=== PATIENT | male | born 1960 | race Caucasian/White ===

== ENCOUNTER → 2017-11-10 14:16 | Outpatient (CLI) | payer BC, SELFPAY ==
[2017-11-10 15:59] LABS: Absolute Lymphocyte Count 2.19 X10^3/ul (0.83-4.51); Absolute Neutrophil Count 3.9 X10^3/uL (2.0-7.7); Basophil% 1.4 % (0-1); Eosinophil# 0.36 X10^3/uL; Hematocrit 41.6 % (40-54); Hemoglobin 14.4 g/dl (13.0-16.5); Lymphocyte # 2.19 X10^3/ul (4.0); Lymphocyte % 30.7 % (19-41); Mean Corp Hgb Conc 34.6 g/gl (32-36); Mean Corpuscular Hgb 31.6 pg (27.0-32.0); Mean Corpuscular Volume 91.4 fL (80-94); Mean Platelet Vol. 11.3 fl (6.2-12.0); Monocyte# 0.53 X10^3/uL; Monocyte% 7.4 % (0-10); Neutrophil # 3.94 X10^3/uL (2.7-7.7); Neutrophil % 55.4 % (47-70); Platelet Count 260 K/mm3 (150-450); RBC Distribution Width CV 12.2 % (11.6-14.6); RBC Distribution Width SD 40.7 fl (35.1-43.9); Red Blood Count 4.55 M/mm3 (4.6-6.2); White Blood Count 7.1 K/mm3 (4.4-11.0)
[2017-11-10 16:08] LABS: POSITIVE COUNT NO; POSITIVE DIFFERENTIAL NO; POSITIVE MORPHOLOGY NO
[2017-11-10 16:10] LABS: ALB/GLOB Ratio 1.1 RATIO (0.9-2.4); AST(SGOT) 12 U/L (15-37); Alanine Aminotransfer ALT/SGPT 31 U/L (16-61); Alkaline Phosphatase 84 U/L (45-117); Anion Gap 10 (5-15); BUN 13 mg/dL (7-18); BUN/Creat Ratio 13.9 RATIO (10-20); Calcium,Total 8.8 mg/dL (8.5-10.1); Chloride 99 mmol/L (98-107); Creatinine, Serum 0.93 mg/dL (0.70-1.30); EST Glomerular Filtration Rate 89 mL/min (>60); Est Glom Filt Rate - Afr Amer 108 mL/min (>60); Globulin 3.7 g/dL (2.2-4.2); Glucose 282 mg/dL (74-106); PSA,Total - Annual Screen 0.62 ng/mL (0.00-4.00); Potassium 4.3 mmol/L (3.5-5.1); Protein, Total 7.7 g/dL (6.4-8.2); Sodium Level 135 mmol/L (136-145); Thyroid Stim Hormone (TSH) 1.08 uIU/mL (0.358-3.74)
[2017-11-11 11:28] LABS: Vitamin D,25 Hydroxy 6.5 ng/mL (19.95-100.01)
[2017-11-12 17:01] LABS: Hep C Antibodies 0.2 s/co ratio (0.0-0.9)
== END ==
PROVIDERS: Visit Provider Family Medicine Geriatric Medicine
DX: E11.9 Type 2 diabetes mellitus without complications (principal); E55.9 Vitamin D deficiency, unspecified; I10 Essential (primary) hypertension; Z12.5 Encounter for screening for malignant neoplasm of prostate; Z13.89 Encounter for screening for other disorder
CPT/HCPCS: 36415; 80053; 82306; 84153; 84443; 85025; 86803; G0103

== ENCOUNTER → 2017-11-27 15:09 | Outpatient (CLI) | payer BC, SELFPAY ==
--- NOTE | 2017-11-27 15:20 | CT_ITS ---
STUDY: LOW DOSE CT LUNG CANCER SCREENING REASON FOR EXAM: Male, 57 years old. 18 year history of smoking RADIATION DOSAGE (If Supplied By Facility): CTDIvol = ( 4.02 ) mGy, DLP = ( 140.44 ) mGycm TECHNIQUE: No contrast was administered. Low dose technique was utilized (average mAS-38 and kVp 120). 1.25 mm axial source images with a slice interval of 1.25-mm were reconstructed in lung windows. 2.5 mm axial source images with a slice interval of 2.5-mm were reconstructed in lung windows. 5.0 mm axial source images with a slice interval of 5.0-mm were reconstructed in soft tissue windows. Nodule measured using lung windows on PACS and/or independent workstation with automated measurement of minimum and maximum diameter. Nodule measurement reported as average diameter rounded to the nearest whole number. Growth is defined as an increase ins size of greater than 1.5 mm. COMPARISON: None. NODULES: Pleural-parenchymal scarring at the posterior segment of the right lung upper lobe. There is no demonstrated pleural abnormality. Normal heart and pericardium. Normal mediastinum. Normal hilar regions. Normal unenhanced pulmonary arteries. Normal aorta arch and descending thoracic aorta. There are multi-level degenerative changes of the thoracic spine. There is no demonstrated abnormality of the visualized upper abdomen. CT/Low Dose CT Lung Screening IMPRESSION: Lung-RADS category 2. Recommendation: Routine screening CT scan in one year. IMPORTANT NOTES FOR USE: ACR Lung-RADS Version 1.0 Assessment Categories Release Date: January 16, 2014 Category: Coded 0-4 bases on nodule(s) with highest degree of suspicion. Negative screen is defined as categories 1 and 2; a positive screen is defined as categories 3 and 4. Category 3 and 4A nodules that are unchanged on interval CT should be coded as category 2, and individuals returned to screening in 12 months. Category 4X: Category 3 or 4 nodules with additional imaging findings that increase the suspicion of lung cancer, such as spiculation, GGN that doubles in size in 1 year, enlarged lymph notes, etc. Category Modifiers: S (significant finding unrelated to lung cancer) and C (prior history of treated lung cancer) may be added to the 0-4 Lung-RADS Electronically Signed: Varsha Stein MD at 22:11 EST Tel , Service support ,
== END ==
PROVIDERS: Family Provider Family Medicine Geriatric Medicine; PCP Family Medicine Geriatric Medicine; Visit Provider Family Medicine Geriatric Medicine
DX: Z12.2 Encounter for screening for malignant neoplasm of respiratory organs (principal); Z87.891 Personal history of nicotine dependence
CPT/HCPCS: G0297

== ENCOUNTER → 2017-12-18 15:38 | Outpatient (CLI) | payer BC, SELFPAY ==
--- NOTE | 2017-12-18 08:15 | COLBX_PTH ---
PATIENT: ARIELLE HAMMER LOC: [facility] U#:[id number] AGE/SX: 65/M ROOM: RE12/18/[address]: Dr. Ghanshyam Alcantar MD : 1960 BED: DIS: SPEC #: [id number] RECD: 12/18/17 15:33 STATUS: ARTURO HARELeslie #: [id number] GUMARO: 12/18/17 08:[address]: Ghanshyam Alcantar DEPT: SURGICAL PATHOLOGY RECD BY: Vincent Sosa ENTERED: 12/21/17 07:29 SP TYPE: COLON BX OTHR DR: Dr. Cristian Banks MD [facility] Tissues: A - COLON BIOPSY B - Transverse colon C - Ascending colon Procedures: Surgery Specimen Level IV HEADER OPERATION: Colonoscopy PRE-OP DIAGNOSIS: Screening / polyp TISSUE SUBMITTED: A ? Polyp at 30 cm, rule out adenoma, B ? Transverse colon, rule out adenoma, C ? Mid ascending colon, rule out adenoma MICROSCOPIC DIAGNOSIS A. Polyp at 30 cm, biopsy: Tubular adenoma. B. Transverse colon polyp, biopsy: Fragments of tubular adenoma. C. Mid ascending colon polyp, biopsy: Tubular adenoma. Fragment of fecal material. STUART:clara 12/22/17 MICROSCOPIC DESCRIPTION Slides are reviewed. GROSS DESCRIPTION A - Received in fixative is one container labeled with the patient's name and designated polyp at 30 cm. The specimen consists of a shay-pink polyp measuring 0.8 x 0.8 x 0.5 cm. The apparent base is inked. The polyp is bisected and submitted entirely in one cassette. B - Received in fixative is one container labeled with the patient's name and designated transverse colon. The specimen consists of multiple irregular fragments of light shay soft tissue that in aggregate measure 1.2 x 0.5 x 0.3 cm. The specimen is totally submitted in one cassette. C - Received in fixative is one container labeled with the patient's name and designated mid ascending colon. The specimen consists of a shay-pink polyp measuring 1 x 0.5 x 0.2 cm. Also received in the container is an elongated fragment of brownish material measuring 1.5 cm in length and 0.1 cm in diameter. The specimen is totally submitted in one cassette. / STUART:clara 12/21/17 TC:1 CPT: 86848 x3
== END ==
PROVIDERS: Family Provider Family Medicine Geriatric Medicine; PCP Family Medicine Geriatric Medicine; Visit Provider Internal Medicine Gastroenterology
DX: Z12.11 Encounter for screening for malignant neoplasm of colon (principal); K63.5 Polyp of colon
CPT/HCPCS: 88305

== ENCOUNTER → 2018-03-22 15:30 | Outpatient (CLI) | payer BC, SELFPAY ==
--- NOTE | 2018-03-22 15:34 | RAD_ITS ---
STUDY: X-RAY - LUMBOSACRAL SPINE REASON FOR EXAM: Male, 57 years old. Lower back pain after shoveling dirt on . TECHNIQUE: 7 view(s) of the lumbosacral spine were obtained. COMPARISON: May 20, 2016. FINDINGS: Normal lumbar lordosis. There is no substantial scoliosis. There is normal alignment of the vertebrae. No significant motion in flexion or extension. Normal vertebral bodies and endplates. Mild multilevel disc space narrowing unchanged. Small marginal osteophytes at several levels. Normal bilateral sacral ala, sacroiliac joints, and visualized sacrum. Normal visualized soft tissue structures. Total left hip arthroplasty in normal alignment. 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 Electronically Signed: Krzysztof Tirado MD at 4:27 EDT , Service support ,
== END ==
LOC: RAD 15:32
PROVIDERS: Family Provider Family Medicine Geriatric Medicine; PCP Family Medicine Geriatric Medicine; Visit Provider Family Medicine Geriatric Medicine
DX: M51.36 Other intervertebral disc degeneration, lumbar region (principal); Z96.642 Presence of left artificial hip joint
CPT/HCPCS: 72114

== ENCOUNTER → 2018-05-13 17:46 | Outpatient (CLI) | payer BC, SELFPAY ==
[2018-05-13 19:08] LABS: Amphetamine Urine VISTA NEGATIVE (<1000 ng/mL); Barbiturate Urine VISTA NEGATIVE (< 200 ng/mL); Benzodiazepine Urine VISTA NEGATIVE (< 200 ng/mL); Cocaine Urine VISTA NEGATIVE (< 300 ng/mL); Ecstacy Urine VISTA NEGATIVE (< 500 ng/mL); Methadone Urine VISTA NEGATIVE (< 300 ng/mL); PCP Urine VISTA NEGATIVE (< 25 ng/mL); THC Urine VISTA NEGATIVE (< 50 ng/mL); Vista UDS pH Range 6
== END ==
LOC: LAB 17:47
PROVIDERS: Family Provider Family Medicine Geriatric Medicine; PCP Family Medicine Geriatric Medicine; Visit Provider Anesthesiology Pain Medicine
DX: F11.20 Opioid dependence, uncomplicated (principal)
CPT/HCPCS: 80307

== ENCOUNTER 2018-05-20 07:33 | Emergency (ER) | payer BC, SELFPAY ==
[2018-05-20 07:34] VITALS: BP 110/86; PULSE 116; RESP 24; TEMP 38.2; O2SAT 99; BMI 27.8
--- NOTE | 2018-05-20 07:53 | ED.DCSUM_ITS ---
- ER Visit Summary Date of Service: 05/20/18 Chief Complaint: Fever, chills nausea and vomiting History of Present Illness: The patient is a 57 M past medical history of non- insulin-dependent diabetes, hypertension, feet neuropathies and chronic back pain. Patient states the last 3 days he has had fever and chills. He has had nausea and vomiting x1. He feels clinically dehydrated. He denies any abdominal pain. He denies any dysuria. He denies any significant cough or shortness of breath. He denies any headache or skin rashes. Physical Examination: Middle-aged male clinically looks dehydrated. Vital signs are stable temperature is 100.8 and his blood pressure is 110/86. H EENT exam unremarkable except for dry mucous membranes. Posterior pharynx unremarkable. Neck nontender. No meningismus. No lymphadenopathy. Able to flex and touch his chin to his chest easily. Lungs clear to auscultation bilaterally. Heart regular rhythm rate about 115 no murmur. Chest wall nontender. Abdomen soft nontender. Normal bowel sounds no peritoneal signs. Nondistended. Moving all 4 extremities. Normal motor strength. Skin no rashes. Back nontender. No CVA tenderness. No spine tenderness. No redness or warmth. Neurologically is awake and alert. He is moving all 4 extremities. He has no motor deficits. Test Results: CBC normal with white count 7. Hemoglobin 14. No bands. Electrolytes unremarkable. Sodium 133. Normal gap. Normal creatinine. UA normal no signs of infection. Lactic acid normal at 1.5. Chest x-ray shows no acute abnormality. Read both by myself and the radiologist. Blood cultures were sent and of course are pending. Emergency Department Course and Treatment: Patient will be treated for dehydration with 2 L of normal saline. IV Zofran. He will be worked up for infection this may be a viral illness versus bacterial etiology. Treatment Plan: Multiple repeat exams patient is doing well. Clinically and by labs I do think this is a viral C blood cultures are pending. He will be discharged to home. Plenty of fluids and rest. Tylenol Motrin for the fever. Return if he is feeling worse. Otherwise follow-up with his primary care physician if not improving. Disposition: Discharge Impression: Acute fever secondary to viral syndrome Acute dehydration History of [id number] diabetes This note was generated with [employer] software. It may contain incorrect words, spelling, and punctuation that were not noted in review of the chart prior to signing ED Disposition - Plan for ED Patient: Chief Complaint: Fever Referrals: Cristian Banks Chi, MD [Primary Care Provider] -
[2018-05-20] MEDS: 0.9% Normal Saline 1,000 ML 1000 ML IV ×2 (08:01→10:14)
[2018-05-20] MEDS: Ondansetron 4 MG/2 ML Vial IV (08:01)
[2018-05-20 08:14] LABS: Anion Gap 10 (5-15); BUN 16 mg/dL (7-18); BUN/Creat Ratio 13.9 RATIO (10-20); Calcium,Total 9.2 mg/dL (8.5-10.1); Chloride 97 mmol/L (98-107); Creatinine, Serum 1.15 mg/dL (0.70-1.30); EST Glomerular Filtration Rate 70 mL/min (>60); Est Glom Filt Rate - Afr Amer 84 mL/min (>60); Estimated Creatinine Clearance 76.39 ml/min; Glucose 186 mg/dL (74-106); Potassium 4.7 mmol/L (3.5-5.1); Sodium Level 133 mmol/L (136-145)
[2018-05-20 08:25] LABS: Absolute Lymphocyte Count 1.09 X10^3/ul (0.83-4.51); Basophil# 0.02 X10^3/uL; Basophil% 0.3 % (0-1); Hematocrit 43.5 % (40-54); Hemoglobin 14.9 g/dl (13.0-16.5); Lymphocyte # 1.09 X10^3/ul (4.0); Lymphocyte % 14.1 % (19-41); Mean Corp Hgb Conc 34.3 g/gl (32-36); Mean Corpuscular Hgb 32.3 pg (27.0-32.0); Mean Corpuscular Volume 94.4 fL (80-94); Mean Platelet Vol. 10.2 fl (6.2-12.0); Monocyte# 0.66 X10^3/uL; Monocyte% 8.5 % (0-10); Neutrophil # 5.97 X10^3/uL (2.7-7.7); Platelet Count 204 K/mm3 (150-450); RBC Distribution Width CV 12.6 % (11.6-14.6); RBC Distribution Width SD 43.1 fl (35.1-43.9); Red Blood Count 4.61 M/mm3 (4.6-6.2); White Blood Count 7.8 K/mm3 (4.4-11.0)
[2018-05-20 08:33] LABS: Lactic Acid 1.5 mmol/L (0.4-2.0)
[2018-05-20 10:10] VITALS: BP 153/97; PULSE 99; RESP 11; O2SAT 97
[2018-05-20 11:52] LABS: Bacteria 0 SEEN /hpf (None Seen); Mucous, Urine 0 SEEN /hpf (<or=2+); Red Blood Cells-Urine 0 SEEN /hpf (0-5); Squamous Epithelial Cells - UA 0 SEEN /hpf (0-5); White Blood Cells 0 SEEN /hpf (0-5)
[2018-05-20] MEDS: Ketorolac 30 MG/ML Syringe IV (11:54)
[2018-05-20 12:01] LABS: Color, Urine Yellow (Yellow); Glucose, Dipstick 1000 mg/dl (Normal); Leukocyte Esterase-Dipstick Negative /ul (Negative); Nitrite-Dipstick Negative (Negative); Occult Blood-Urine Negative /ul (Negative); Protein-Dipstick 15 mg/dl (Negative); Specific Gravity, Urine 1.015 (1.002-1.030); Urine Bilirubin Dipstick Negative (Negative); Urine Clarity Clear (Clear); Urine Urobilinogen Normal (Normal)
[2018-05-20 12:12] VITALS: BP 133/77; PULSE 93; RESP 12; O2SAT 98
[2018-05-20 12:13] LABS: Ketone-Dipstick 150 mg/dl (Negative)
--- NOTE | 2018-05-20 13:50 | ED.DEP ---
ED Disposition - Plan for ED Patient: Disposition: Home or Assisted Living Chief Complaint: Fever Instructions: ED Viral Syndrome Referrals: Cristian Banks Chi, MD [Primary Care Provider] - 1-2 Days if not improving Additional Instructions: Plenty of fluids and rest. Alternate Tylenol and Motrin for fever. Follow-up with your doctor if not improving or return to ER feeling worse. All your labs and chest x-ray today were normal. No signs of any type of bacterial infection. Blood cultures are done but are pending results and should be reported in the next 24-48 hours. We will call you back if those are positive.
== END 2018-05-20 14:02 | disposition home or self-care (01) ==
PROVIDERS: Emergency Provider Emergency Medicine; Family Provider Family Medicine Geriatric Medicine; PCP Family Medicine Geriatric Medicine
DX: B34.9 Viral infection, unspecified (principal); E86.0 Dehydration; I10 Essential (primary) hypertension; M54.9 Dorsalgia, unspecified; G89.29 Other chronic pain; E11.42 Type 2 diabetes mellitus with diabetic polyneuropathy; Z79.84 Long term (current) use of oral hypoglycemic drugs; Z79.899 Other long term (current) drug therapy; Z72.0 Tobacco use; Z79.891 Long term (current) use of opiate analgesic
CPT/HCPCS: 36415; 71045; 80048; 81001; 83605; 85025; 87040; 96361; 96374; 96375; 99284; J7030; A4216; J2405

== ENCOUNTER → 2018-05-28 08:59 | Outpatient (CLI) | payer BC, SELFPAY ==
[2018-05-28 12:10] LABS: Absolute Lymphocyte Count 1.32 X10^3/ul (0.83-4.51); Absolute Neutrophil Count 6.1 X10^3/uL (2.0-7.7); Basophil# 0.03 X10^3/uL; Basophil% 0.3 % (0-1); Eosinophil# 0.05 X10^3/uL; Eosinophils% 0.6 % (0-5); Hematocrit 44.3 % (40-54); Hemoglobin 15.4 g/dl (13.0-16.5); Lymphocyte # 1.32 X10^3/ul (4.0); Lymphocyte % 15.2 % (19-41); Mean Corp Hgb Conc 34.8 g/gl (32-36); Mean Corpuscular Hgb 32.4 pg (27.0-32.0); Mean Corpuscular Volume 93.3 fL (80-94); Mean Platelet Vol. 10.3 fl (6.2-12.0); Monocyte# 1.12 X10^3/uL; Monocyte% 12.9 % (0-10); Neutrophil # 6.11 X10^3/uL (2.7-7.7); Neutrophil % 70.1 % (47-70); Platelet Count 408 K/mm3 (150-450); RBC Distribution Width CV 12.4 % (11.6-14.6); RBC Distribution Width SD 41.9 fl (35.1-43.9); Red Blood Count 4.75 M/mm3 (4.6-6.2); White Blood Count 8.7 K/mm3 (4.4-11.0)
[2018-05-28 12:15] LABS: POSITIVE COUNT NO; POSITIVE DIFFERENTIAL NO; POSITIVE MORPHOLOGY NO
[2018-05-28 12:54] LABS: ALB/GLOB Ratio 0.9 RATIO (0.9-2.4); AST(SGOT) 12 U/L (15-37); Alanine Aminotransfer ALT/SGPT 31 U/L (16-61); Albumin, Serum 4.1 g/dL (3.2-5.0); Alkaline Phosphatase 71 U/L (45-117); Anion Gap 10 (5-15); BUN 21 mg/dL (7-18); BUN/Creat Ratio 22.9 RATIO (10-20); Calcium,Total 9.6 mg/dL (8.5-10.1); Chloride 98 mmol/L (98-107); Creatinine, Serum 0.92 mg/dL (0.70-1.30); EST Glomerular Filtration Rate 90 mL/min (>60); Est Glom Filt Rate - Afr Amer 109 mL/min (>60); Globulin 4.4 g/dL (2.2-4.2); Glucose 105 mg/dL (74-106); Potassium 4.1 mmol/L (3.5-5.1); Protein, Total 8.5 g/dL (6.4-8.2); Sodium Level 134 mmol/L (136-145); Thyroid Stim Hormone (TSH) 0.51 uIU/mL (0.358-3.74)
== END ==
PROVIDERS: Family Provider Family Medicine Geriatric Medicine; PCP Family Medicine Geriatric Medicine; Visit Provider Family Medicine Geriatric Medicine
DX: E11.9 Type 2 diabetes mellitus without complications (principal); I10 Essential (primary) hypertension
CPT/HCPCS: 36415; 80053; 84443; 85025

== ENCOUNTER → 2018-06-11 07:59 | Outpatient (CLI) | payer BC, SELFPAY ==
[2018-06-11 08:34] VITALS: BP 119/83; PULSE 91; RESP 16; TEMP 36.4; O2SAT 97; BMI 23.7
[2018-06-11] MEDS: Cosyntropin 0.25 MG Vial IV (08:40)
== END ==
PROVIDERS: Family Provider Family Medicine Geriatric Medicine; PCP Family Medicine Geriatric Medicine; Visit Provider Family Medicine Geriatric Medicine
DX: R53.83 Other fatigue (principal)
CPT/HCPCS: 96374; 82533; A4216; J0834

== ENCOUNTER → 2018-08-26 15:47 | Outpatient (CLI) | payer BC, SELFPAY ==
[2018-08-26 16:48] LABS: Absolute Lymphocyte Count 2.14 X10^3/ul (0.83-4.51); Absolute Neutrophil Count 3.5 X10^3/uL (2.0-7.7); Basophil# 0.09 X10^3/uL; Basophil% 1.3 % (0-1); Eosinophil# 0.27 X10^3/uL; Hematocrit 41.2 % (40-54); Lymphocyte # 2.14 X10^3/ul (4.0); Lymphocyte % 31.8 % (19-41); Mean Corpuscular Hgb 33.4 pg (27.0-32.0); Mean Corpuscular Volume 98.3 fL (80-94); Mean Platelet Vol. 10.5 fl (6.2-12.0); Monocyte# 0.68 X10^3/uL; Monocyte% 10.1 % (0-10); Neutrophil # 3.53 X10^3/uL (2.7-7.7); Neutrophil % 52.5 % (47-70); Platelet Count 267 K/mm3 (150-450); RBC Distribution Width CV 12.7 % (11.6-14.6); RBC Distribution Width SD 44.4 fl (35.1-43.9); Red Blood Count 4.19 M/mm3 (4.6-6.2); White Blood Count 6.7 K/mm3 (4.4-11.0)
[2018-08-26 16:51] LABS: POSITIVE COUNT NO; POSITIVE DIFFERENTIAL NO; POSITIVE MORPHOLOGY NO
[2018-08-26 17:05] LABS: ALB/GLOB Ratio 1.1 RATIO (0.9-2.4); AST(SGOT) 14 U/L (15-37); Alanine Aminotransfer ALT/SGPT 28 U/L (16-61); Albumin, Serum 3.9 g/dL (3.2-5.0); Alkaline Phosphatase 71 U/L (45-117); Anion Gap 8 (5-15); BUN 18 mg/dL (7-18); BUN/Creat Ratio 21.3 RATIO (10-20); Calcium,Total 8.5 mg/dL (8.5-10.1); Chloride 104 mmol/L (98-107); Creatinine, Serum 0.85 mg/dL (0.70-1.30); EST Glomerular Filtration Rate 99 mL/min (>60); Est Glom Filt Rate - Afr Amer 120 mL/min (>60); Globulin 3.5 g/dL (2.2-4.2); Glucose 138 mg/dL (74-106); Potassium 4.1 mmol/L (3.5-5.1); Protein, Total 7.4 g/dL (6.4-8.2); Sodium Level 139 mmol/L (136-145); Thyroid Stim Hormone (TSH) 1.74 uIU/mL (0.358-3.74)
== END ==
PROVIDERS: Family Provider Family Medicine Geriatric Medicine; PCP Family Medicine Geriatric Medicine; Visit Provider Family Medicine Geriatric Medicine
DX: E11.9 Type 2 diabetes mellitus without complications (principal); I10 Essential (primary) hypertension
CPT/HCPCS: 36415; 80053; 84443; 85025

== ENCOUNTER → 2018-10-12 13:51 | Outpatient (CLI) | payer BC, SELFPAY ==
[2018-06-11 08:34] VITALS: BMI 23.7
--- NOTE | 2018-10-12 13:53 | RAD_ITS ---
STUDY: X-RAY - LUMBOSACRAL SPINE REASON FOR EXAM: Male, 58 years old. Chronic low back pain. TECHNIQUE: 6 view(s) of the lumbosacral spine were obtained including flexion and extension and oblique views. COMPARISON: Comparison is made with prior study dated March 22, 2018. FINDINGS: Normal lumbar lordosis. There is no substantial scoliosis. There is normal alignment of the vertebrae. There is multilevel endplate spondylosis of the lumbar vertebrae. There is multi-level degenerative disc disease with multi-level disc space narrowing. Normal bilateral sacral ala, sacroiliac joints, and visualized sacrum. Left hip replacement. There is atherosclerotic calcification of the abdominal aorta without a demonstrated aneurysm. RAD/L/S Spine Comp/w Bending Views IMPRESSION: Normal x-ray examination of the lumbosacral spine. Electronically Signed: Marcelo Vasquez MD at 13:30 EST , Service support ,
--- NOTE | 2018-10-12 13:53 | RAD_ITS ---
STUDY: X-RAY - LEFT HIP REASON FOR EXAM: Male, 58 years old. Left hip pain. TECHNIQUE: 2 views of the hip. COMPARISON: Comparison is made with prior study dated April 13, 2012. FINDINGS: The patient is status post left hip replacement. There is good alignment. Normal visualized superior and inferior pubic rami and ischial tuberosities. Narrowing of the symphysis pubis. RAD/HIP, UNI W/ Pelvis 2-3 Views IMPRESSION: Status post left hip replacement. There is good alignment. Electronically Signed: Marcelo Vasquez MD at 13:31 EST , Service support ,
--- OUTSIDE RECORDS SUMMARY | 2018-12-14 18:50 | XMS RPT_ITS ---
:1960 Author Organization OHIP Support Name Relationship Address Phone [employer] Unavailable [address] + [place] [address] MICHAEL PATEL Unavailable [address] + [place] [address] [employer] Unavailable [address] + [place] [address] MICHAEL PATEL Unavailable [address] + [place] [address] [employer] Unavailable [address] + [place] [address] MICHAEL HAMMER Unavailable [address] + [place] [address] [employer] Unavailable [address] + [place] [address] JAQUELIN MICHAEL Unavailable [address] + [place] [address] [employer] Unavailable [address] + [place] [address] JAQUELIN MICHAEL Unavailable [address] + [place] [address] [employer] Unavailable [address] + [place] [address] MICHAEL HAMMER Unavailable [address] + [place] [address] [employer] Unavailable [address] + [place] [address] MICAHEL HAMMER Unavailable [address] + [place] [address] [employer] Unavailable [address] + [place] [address] MICHAEL HAMMER Unavailable [address] + [place] [address] [employer] Unavailable [address] + [place] [address] HAMMER, MICHAEL Unavailable [address] + [place] [address] [employer] Unavailable [address] + [place] [address] HAMMER, MICHAEL Unavailable [address] + [place] [address] [employer] Unavailable [address] + [place] [address] HAMMER, MICHAEL Unavailable [address] + [place] [address] [employer] Unavailable [address] + [place] [address] HAMMER, MICHAEL Unavailable [address] + [place] [address] Care Team Providers Name Role Phone Tori Bajwa Attending Unavailable Darren, Cristian Chi Referring Unavailable Tori Bajwa Attending Unavailable Tori Bajwa Referring Unavailable Darren, Cristian Chi Primary Care Unavailable Darren, Cristian Chi Attending Unavailable Darren, Cristian Chi Attending Unavailable Darren, Cristian Chi Referring Unavailable Darren, Cristian Chi Primary Care Unavailable Ghanshyam Alcantar Attending Unavailable Ghanshyam Alcantar Referring Unavailable Darren, Cristian Chi Primary Care Unavailable Darren, Cristian Chi Attending Unavailable Darren, Cristian Chi Referring Unavailable Darren, Cristian Chi Primary Care Unavailable Darren, Cristian Chi Attending Unavailable Darren, Cristian Chi Referring Unavailable Darren, Cristian Chi Primary Care Unavailable Jeanine Huntley Attending Unavailable Jeanine Huntley Referring Unavailable Darren, Cristian Chi Primary Care Unavailable Darren, Cristian Chi Primary Care Unavailable Shmuel West Attending Unavailable Darren, Cristian Chi Attending Unavailable Darren, Cristian Chi Primary Care Unavailable Darren, Cristian Chi Attending Unavailable Darren, Cristian Chi Referring Unavailable Darren, Cristian Chi Primary Care Unavailable Darren, Cristian Chi Attending Unavailable Darren, Cristian Chi Primary Care Unavailable PROBLEMS PROBLEMS DATE TYPE CONDITION / CODE ATTENDING STATUS SOURCE 10/12/2018 Unknown M54.5 - Low back Tori Bajwa Active [place] pain / Community M54.5(ICD-10) Hospital Repository 10/12/2018 Unknown M25.552 - Pain in Bajwa, Tori Active [facility] left hip / Community M25.552(ICD-10) Hospital Repository 08/26/2018 Unknown E11.9 - Type 2 Darren, Cristian Chi Active [facility] diabetes mellitus Community without Hospital complications / Repository E11.9(ICD-10) 08/26/2018 Unknown I10 - Essential Darren, Cristian Chi Active [facility] (primary) Community hypertension / Hospital I10(ICD-10) Repository 11/27/2017 Unknown Z87.891 - Personal Darren, Cristian Chi Active [facility] history of nicotine Community dependence / Hospital Z87.891(ICD-10) Repository 11/10/2017 Unknown E55.9 - Vitamin D Darren, Cristian Chi Active [facility] deficiency, Community unspecified / Hospital E55.9(ICD-10) Repository 11/10/2017 Unknown Z12.5 - Encounter Darren, Cristian Chi Active [facility] for screening for [facility] malignant neoplasm Hospital of prostate / Repository Z12.5(ICD-10) 11/10/2017 Unknown Z13.89 - Encounter Darren, Cristian Chi Active [facility] for screening for [facility] other disorder / Hospital Z13.89(ICD-10) Repository PROCEDURES PROCEDURES No Procedure Records FoundRESULTS RESULTS ORTHOPEDIC VISIT Observed: 10/16/2018 Status: F Source: [place] REPORT 10:51 AM [facility] REPOSITORY [facility] [address] [place] [address] OFFICE VISIT Date of Service: 10/12/18 MR#: [id number] Acct: [id number] Name: EVGENY HAMMER Rep #: [id number] : 1960 Provider: Tori Bajwa MD Age/Sex: 58/M Location: [facility] [place] Status: Signed Intake Intake Visit Reasons: low back pain Chief Complaint: CORTISOL STIM Allergies No Known Allergies Allergy (Verified 02/15/17 10:52) Medications Famotidine [Pepcid] 20 mg PO BID #28 tab 10/02/15 [Rx] Hydrocodone Bitart/Apap 5-325 [Norwood 5/325] 1 - 2 tab PO Q4H PRN PRN #12 tab 10/02/15 [Rx] Lisinopril 20 mg PO DAILY 10/02/15 [History Confirmed 10/02/15] Metformin [Metformin HCl] 1,000 mg PO DAILY 10/02/15 [History Confirmed 10/02/15] Etodolac [Lodine] 300 mg PO TIDCM #30 cap 02/15/17 [Rx] Hydrocodone Bitart/Apap 5-325 [Norwood 5/325] 1 tab PO Q6H PRN PRN #12 tab 02/15/17 [Rx] PFSH Social History Smoking Status: Current every day smoker HPI low back pain: Details: EVGENY HAMMER is a 58 year old RHD M here today for lumbar back pain 100% and states that his L5 pops out. He is referred to us by Dr Banks. He complains of low back pain into his tail bone all the time. He has left groin pain that started about 3 days ago when he slipped on the ice. He has had a left LUANA 6 years ago without complications. He has a history of left hip dislocation 1.5 years ago. He does not see his surgeon anymore. His back pain is typically worse with sitting and driving and improved with standing and walking. He denies bowel or bladder issues, gait instability or difficulty with hand dexterity. He has had no physical therapy. He has tried injections with Dr Huntley on 04/22/18 he had lumbar epidural L5/S1 right side and on 05/25 he had lumbar facet bilaterally L4/5/S1. Each helped for a short time. He used a chiro prn but has not been there for over a year. He has had no spine surgery. He takes tylenol without relief. He is unable to tolerated NSAIDs due to gastric pain. He has tried muscle relaxers in the past with improvement. 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 He has DM with peripheral neuropathy in his feet. He does smoke 1 ppd. He is trying to quit in the next few months. Ortho Exam Spine Neuro: Yes London's (negative bilaterally), Babinski (downgoing bilaterally), Clonus (none bilaterally), Straight Leg Raise (negative bilaterally) and Light Touch Sensation (decreased in plantar feet bilateral) General: alert, oriented x3 Capillary Refill <2sec: Yes Palpable Pulses: 2+ bilateral dp/pt pulses Gait: antalgic, other (able to heel and toe stand) Motor: strength 5/5 throughout (with 5-/5 diffuse left lower extremity due to groin pain) DTR's: Rt Triceps: 2+, Lt Triceps: 2+, Rt Biceps: 2+, Lt Biceps: 2+, Rt Brachioradialis: 2+, Lt Brachioradialis: 2+, Rt Patellar: 2+, Lt Patellar: 2+, Rt Ankle: 2+, Lt Ankle: 2+ Plantar Reflexes: Downgoing: bilateral Coordination: Romberg test normal SPINE TESTING CERVICAL THORACIC LUMBAR SLR: Negative Musculoskeletal General: Yes normal posture Cervical Spine: cervical ROM normal Thoracic/Lumbar Spine: paraspinal tenderness, pain with thoraco- lumbar ROM, thoraco-lumbar ROM limited Strength 0=absent - 5=normal Deltoid R (C5): 5, Deltoid L (C5): 5, R Bicep (C5-6): 5, L Bicep (C5-6): 5, R Wrist Extensor (C6): 5, L Wrist Extensor (C6): 5, R Tricep (C7): 5, L Tricep (C7): 5, R Finger Flexors (C8): 5, L Finger Flexors (C8): 5, R First Dorsal Interossei (C8): 5, L First Dorsal Interossei (C8): 5, R Hip Flexor (L1-3): 5, L Hip Flexor (L1-3): 5, R Quadriceps (L2-4): 5, L Quadriceps (L2-4): 5, R Anterior Tibialis (L4-5): 5, L Anterior Tibialis (L4- 5): 5, R Hamstrings (L5-S1): 5, L Hamstrings (L5-S1): 5, GS (S1): 5, L GS (S1): 5, R Peroneals (S1): 5, L Peroneals (S1): 5 Details: pain with left hip active range of motion. no pain with passive range of motion. Assessment AND Plan Problems 1. Chronic bilateral low back pain without sciatica M54.5; G89.29 Plan Imaging: XR lumbar spine 10/12/2018 reveals diffuse spondylosis XR left hip 10/12/2018 reveals prior left LUANA without fracture MRI lumbar spine 01/14/2017 reveals diffuse spondylosis without significant central, lateral recess or foraminal stenosis I/R/P: 1. back pain 2. left hip pain 3. h/o left LUANA 6 yeras ago 4. nicotine use Mr. Hammer presents with chronic back pain that has not changed sinced his MRI in 2017. The natural history and course of the symptomatology of back pain was discussed in detail with the patient. I answered all questions regarding the mode of onset, pathophysiology, symptoms, imaging findings, treatment options regarding his diagnosis. Recommend continued conservative treatment to include aqua therapy and physical therapy. Continue injection care per Dr. Huntley. Counseled on nicotine cessation. With regards to his acute left hip pain, recommend returning to his orthopedic joint surgeon. Follow up as needed. Plan of care discussed. All questions answered. The patient verbalized understanding of the disease process and agreed to the treatment plan formulated for this visit. Orders Orders: Coding Level of Care Code Off vis,new,level 4 Diagnoses Chronic bilateral low back pain without sciatica M54.5; G89.29 Back pain location: low back pain Chronicity: chronic Back pain laterality: bilateral Sciatica presence: without sciatica 10/16/18 1051 <Electronically signed by Tori Bajwa MD> Date Tori Bajwa MD Cosigner Signature: Date (if applicable) CC: Cristian Banks MD L/S SPINE COMP/W Observed: 10/12/2018 Status: F Source: [place] BENDING VIEWS 1:53 PM [facility] REPOSITORY [facility] Imaging Services [address] [place] [address] L/S Spine Comp/w Bending Views MR#: [id number] Acct: [id number] Name: EVGENY HAMMER Rep #: [id number] : 1960 M 58 From: Marcelo Vasquez MD PCP: Darren CASTREJON,Cristian Adler Status: REG CLI Study: L/S Spine Comp/w Bending Views Date of Exam: 10/12/18 Exam# [id number] Ordering Dr: Tori Bajwa MD STUDY: X-RAY - LUMBOSACRAL SPINE REASON FOR EXAM: Male, 58 years old. Chronic low back pain. TECHNIQUE: 6 view(s) of the lumbosacral spine were obtained including flexion and extension and oblique views. COMPARISON: Comparison is made with prior study dated March 22, 2018. FINDINGS: Normal lumbar lordosis. There is no substantial scoliosis. There is normal alignment of the vertebrae. There is multilevel endplate spondylosis of the lumbar vertebrae. There is multi-level degenerative disc disease with multi-level disc space narrowing. Normal bilateral sacral ala, sacroiliac joints, and visualized sacrum. Left hip replacement. There is atherosclerotic calcification of the abdominal aorta without a demonstrated aneurysm. RAD/L/S Spine Comp/w Bending Views IMPRESSION: Normal x-ray examination of the lumbosacral spine. Electronically Signed: Marcelo Vasquez MD at 13:30 EST , Service support , CC: Tori Bajwa MD; Cristian Banks MD Funeral Home Director: Signed HIP, UNI W/ PELVIS Observed: 10/12/2018 Status: F Source: [place] 2-3 VIEWS 1:53 PM [facility] REPOSITORY [facility] Imaging Services [address] [place] [address] HIP, UNI W/ Pelvis 2-3 Views MR#: [id number] Acct: [id number] Name: EVGENY HAMMER Rep #: [id number] : 1960 M 58 From: Marcelo Vasquez MD PCP: Cristian Banks MD, Chi Status: REG CLI Study: HIP, UNI W/ Pelvis 2-3 Views Date of Exam: 10/12/18 Exam# [id number] Ordering Dr: Tori Bajwa MD STUDY: X-RAY - LEFT HIP REASON FOR EXAM: Male, 58 years old. Left hip pain. TECHNIQUE: 2 views of the hip. COMPARISON: Comparison is made with prior study dated April 13, 2012. FINDINGS: The patient is status post left hip replacement. There is good alignment. Normal visualized superior and inferior pubic rami and ischial tuberosities. Narrowing of the symphysis pubis. RAD/HIP, UNI W/ Pelvis 2-3 Views IMPRESSION: Status post left hip replacement. There is good alignment. Electronically Signed: Marcelo Vasquez MD at 13:31 EST , Service support , CC: Tori Bajwa MD; Cristian Banks MD Funeral Home Director: Signed CBC W/DIFF, AUTOMATED Collected: 08/26/2018 Status: F Source: [place] 3:49 PM [facility] REPOSITORY TYPE CODE TESTS RESULT OUT OF RANGE REFERENCE UNITS LAB L100.1000 4.4-11.0 K/mm3 Normal WBC 6.7 LAB L100.1200 4.6-6.2 M/mm3 Low RBC 4.19 LAB L100.1300 13.0-16.5 g/dl Normal HGB 14.0 LAB L100.1400 40-54 % Normal HCT 41.2 LAB L100.1500 80-94 fL High MCV 98.3 LAB L100.1600 27.0-32.0 pg High MCH 33.4 LAB L100.1700 32-36 g/gl Normal MCHC 34.0 LAB L100.1810 11.6-14.6 % Normal RDW CV 12.7 LAB L100.1820 35.1-43.9 fl High RDW SD 44.4 LAB L100.1900 150-450 K/mm3 Normal PLT 267 LAB L100.2000 6.2-12.0 fl Normal MPV 10.5 LAB L100.2100 47-70 % Normal NEUT% 52.5 LAB L100.2200 19-41 % Normal LY% 31.8 LAB L100.2300 0-10 % High MONO% 10.1 LAB L100.2400 0-5 % Normal EO% 4.0 LAB L100.2500 0-1 % High BASO% 1.3 LAB L100.2550 0.0-0.9 % Normal IM GRAN % 0.300 Result Comment: IG% - Immature Granulocytes (promyelocytes, myelocytes and metamyelocytes) > 1% indicates that a LEFT SHIFT is Present. LAB L100.2620 2.0-7.7 X10 3/uL Normal Absolute Neut 3.5 LAB L100.2720 0.83-4.51 X10 3/ul Normal Absolute Lymph 2.14 Performed By: #### L100.0100 #### [facility] [address] [place], [address] COMPREHENSIVE METABOLIC Collected: 08/26/2018 Status: F Source: [facility] 3:49 PM [facility] REPOSITORY TYPE CODE TESTS RESULT OUT OF RANGE REFERENCE UNITS LAB L501.0100 74-106 mg/dL High GLU 138 Result Comment: Fasting Glucose result greater than or equal to 126 mg/dL suggests DIABETES MELLITUS per A.D.A. criteria. Please note revised GLUCOSE reference range effective 2017. LAB L501.1000 7-18 mg/dL Normal BUN 18 LAB L501.1100 0.70-1.30 mg/dL Normal CREAT,SERUM 0.85 Result Comment: The validity of the calculated GFR AND GFRAA in patients over 70 years has not been determined. Clinical correlation is essential. LAB L501.1110 >60 mL/min Normal EST GFR 99 Result Comment: Non- GFR Calc LAB L501.1115 >60 mL/min Normal EST GFR - AA 120 Result Comment: GFR Calc LAB L501.1300 10-20 RATIO High BUN/CRE 21.3 LAB L501.1500 6.4-8.2 g/dL T Normal PROT 7.4 LAB L501.1800 3.2-5.0 g/dL Normal ALB 3.9 LAB L501.1950 2.2-4.2 g/dL Normal GLOB 3.5 LAB L501.2000 0.9-2.4 RATIO Normal A/G 1.1 LAB L501.2200 8.5-10.1 mg/dL CA Normal 8.5 LAB L501.4100 15-37 U/L Low AST 14 LAB L501.4305 45-117 U/L Normal ALK P 71 LAB L501.4405 16-61 U/L Normal ALT 28 LAB L501.4600 0.20-1.00 mg/dL T Normal BILI 0.20 LAB L501.5300 136-145 mmol/L NA Normal 139 LAB L501.5600 3.5-5.1 mmol/L K Normal 4.1 LAB L501.5900 98-107 mmol/L CL Normal 104 LAB L501.6100 21.0-32.0 mmol/L Normal CO2 27.0 LAB L501.6200 5-15 Normal GAP 8 Performed By: #### L500.4050, L501.9520 #### [facility] [address] [facility] [place], [place], [address] THYROID STIM HORMONE Collected: 08/26/2018 Status: F Source: [place] (TSH) 3:49 PM [facility] REPOSITORY TYPE CODE TESTS RESULT OUT OF RANGE REFERENCE UNITS LAB L501.9520 0.358-3.74 uIU/mL Normal TSH 1.74 Performed By: #### L500.4050, L501.9520 #### [facility] [address] [facility] [place], [address] CORTISOL SERUM Collected: 06/11/2018 Status: F Source: [place] 9:45 AM [facility] REPOSITORY Order Comment: BASELINE OR POST MEDICATION STIMULATION?: 60 Min Post MED Stimulati Time Medication Given: 0840 TYPE CODE TESTS RESULT OUT OF RANGE REFERENCE UNITS LAB L509.6000 3.09-22.40 ug/dL Normal CORTISOL 19.90 Result Comment: Adult (AM) 4.30 - 22.40 ug/dL Adult (PM) 3.09 - 16.66 ug/dL Performed By: #### L509.6000 #### [facility] [address] [facility] [place], [address] CORTISOL SERUM Collected: 06/11/2018 Status: F Source: [place] 9:13 AM [facility] REPOSITORY Order Comment: Has pt arrived? Y BASELINE OR POST MEDICATION STIMULATION?: 30 Min Post MED Stimulati Time Medication Given: 0840 TYPE CODE TESTS RESULT OUT OF RANGE REFERENCE UNITS LAB L509.6000 3.09-22.40 ug/dL Normal CORTISOL 15.80 Result Comment: Adult (AM) 4.30 - 22.40 ug/dL Adult (PM) 3.09 - 16.66 ug/dL Performed By: #### L509.6000 #### [facility] [address] [place], [address] CORTISOL SERUM Collected: 06/11/2018 Status: F Source: [place] 12:00 AM [facility] REPOSITORY Order Comment: BASELINE OR POST MEDICATION STIMULATION?: Baseline TYPE CODE TESTS RESULT OUT OF RANGE REFERENCE UNITS LAB L509.6000 3.09-22.40 ug/dL Normal CORTISOL 3.10 Result Comment: Adult (AM) 4.30 - 22.40 ug/dL Adult (PM) 3.09 - 16.66 ug/dL Performed By: #### L509.6000 #### [facility] [address] [place], [address] CBC W/DIFF, AUTOMATED Collected: 05/28/2018 Status: F Source: [place] 11:31 AM [facility] REPOSITORY TYPE CODE TESTS RESULT OUT OF RANGE REFERENCE UNITS LAB L100.1000 4.4-11.0 K/mm3 Normal WBC 8.7 LAB L100.1200 4.6-6.2 M/mm3 Normal RBC 4.75 LAB L100.1300 13.0-16.5 g/dl Normal HGB 15.4 LAB L100.1400 40-54 % Normal HCT 44.3 LAB L100.1500 80-94 fL Normal MCV 93.3 LAB L100.1600 27.0-32.0 pg High MCH 32.4 LAB L100.1700 32-36 g/gl Normal MCHC 34.8 LAB L100.1810 11.6-14.6 % Normal RDW CV 12.4 LAB L100.1820 35.1-43.9 fl Normal RDW SD 41.9 LAB L100.1900 150-450 K/mm3 Normal PLT 408 LAB L100.2000 6.2-12.0 fl Normal MPV 10.3 LAB L100.2100 47-70 % High NEUT% 70.1 LAB L100.2200 19-41 % Low LY% 15.2 LAB L100.2300 0-10 % High MONO% 12.9 LAB L100.2400 0-5 % Normal EO% 0.6 LAB L100.2500 0-1 % Normal BASO% 0.3 LAB L100.2550 0.0-0.9 % Normal IM GRAN % 0.900 Result Comment: IG% - Immature Granulocytes (promyelocytes, myelocytes and metamyelocytes) > 1% indicates that a LEFT SHIFT is Present. LAB L100.2620 2.0-7.7 X10 3/uL Normal Absolute Neut 6.1 LAB L100.2720 0.83-4.51 X10 3/ul Normal Absolute Lymph 1.32 Performed By: #### L100.0100 #### [facility] [address] [place], [address] COMPREHENSIVE METABOLIC Collected: 05/28/2018 Status: F Source: [facility] 11:31 AM [facility] REPOSITORY TYPE CODE TESTS RESULT OUT OF RANGE REFERENCE UNITS LAB L501.0100 74-106 mg/dL Normal GLU 105 Result Comment: Fasting Glucose result from 100 to 125 mg/dL suggests IMPAIRED HOMEOSTASIS per A.D.A. criteria. Please note revised GLUCOSE reference range effective 2017. LAB L501.1000 7-18 mg/dL High BUN 21 LAB L501.1100 0.70-1.30 mg/dL Normal CREAT,SERUM 0.92 Result Comment: The validity of the calculated GFR AND GFRAA in patients over 70 years has not been determined. Clinical correlation is essential. LAB L501.1110 >60 mL/min Normal EST GFR 90 Result Comment: Non- GFR Calc LAB L501.1115 >60 mL/min Normal EST GFR - AA 109 Result Comment: GFR Calc LAB L501.1300 10-20 RATIO High BUN/CRE 22.9 LAB L501.1500 6.4-8.2 g/dL High T PROT 8.5 LAB L501.1800 3.2-5.0 g/dL Normal ALB 4.1 LAB L501.1950 2.2-4.2 g/dL High GLOB 4.4 LAB L501.2000 0.9-2.4 RATIO Normal A/G 0.9 LAB L501.2200 8.5-10.1 mg/dL CA Normal 9.6 LAB L501.4100 15-37 U/L Low AST 12 LAB L501.4305 45-117 U/L Normal ALK P 71 LAB L501.4405 16-61 U/L Normal ALT 31 LAB L501.4600 0.20-1.00 mg/dL T Normal BILI 0.40 LAB L501.5300 136-145 mmol/L Low NA 134 LAB L501.5600 3.5-5.1 mmol/L K Normal 4.1 LAB L501.5900 98-107 mmol/L CL Normal 98 LAB L501.6100 21.0-32.0 mmol/L Normal CO2 26.0 LAB L501.6200 5-15 Normal GAP 10 Performed By: #### L500.4050, L501.9520 #### [facility] [address] [place], [address] THYROID STIM HORMONE Collected: 05/28/2018 Status: F Source: [place] (TSH) 11:31 AM [facility] REPOSITORY TYPE CODE TESTS RESULT OUT OF RANGE REFERENCE UNITS LAB L501.9520 0.358-3.74 uIU/mL Normal TSH 0.51 Performed By: #### L500.4050, L501.9520 #### [facility] [address] [place], [address] EMERGENCY DEPARTMENT Observed: 05/20/2018 Status: F Source: [place] SUMMARY 4:00 PM [facility] REPOSITORY [facility] Medical Records Department [address] [place] [address] Emergency Department Summary 05/20/18 0751 MR#: [id number] Acct: [id number] Name: EVGENY HAMMER Rep #: [id number] : 1960 57 From: Shmuel West MD PCP: Darren CASTREJON,Cristian Adler Status: DEP ER - ER Visit Summary Date of Service: 05/20/18 Chief Complaint: Fever, chills nausea and vomiting History of Present Illness: The patient is a 57 M past medical history of akc-kqufebb-hdfjbinof diabetes, hypertension, feet neuropathies and chronic back pain. Patient states the last 3 days he has had fever and chills. He has had nausea and vomiting x1. He feels clinically dehydrated. He denies any abdominal pain. He denies any dysuria. He denies any significant cough or shortness of breath. He denies any headache or skin rashes. Physical Examination: Middle-aged male clinically looks dehydrated. Vital signs are stable temperature is 100.8 and his blood pressure is 110/86. H EENT exam unremarkable except for dry mucous membranes. Posterior pharynx unremarkable. Neck nontender. No meningismus. No lymphadenopathy. Able to flex and touch his chin to his chest easily. Lungs clear to auscultation bilaterally. Heart regular rhythm rate about 115 no murmur. Chest wall nontender. Abdomen soft nontender. Normal bowel sounds no peritoneal signs. Nondistended. Moving all 4 extremities. Normal motor strength. Skin no rashes. Back nontender. No CVA tenderness. No spine tenderness. No redness or warmth. Neurologically is awake and alert. He is moving all 4 extremities. He has no motor deficits. Test Results: CBC normal with white count 7. Hemoglobin 14. No bands. Electrolytes unremarkable. Sodium 133. Normal gap. Normal creatinine. UA normal no signs of infection. Lactic acid normal at 1.5. Chest x-ray shows no acute abnormality. Read both by myself and the radiologist. Blood cultures were sent and of course are pending. Emergency Department Course and Treatment: Patient will be treated for dehydration with 2 L of normal saline. IV Zofran. He will be worked up for infection this may be a viral illness versus bacterial etiology. Treatment Plan: Multiple repeat exams patient is doing well. Clinically and by labs I do think this is a viral C blood cultures are pending. He will be discharged to home. Plenty of fluids and rest. Tylenol Motrin for the fever. Return if he is feeling worse. Otherwise follow-up with his primary care physician if not improving. Disposition: Discharge Impression: Acute fever secondary to viral syndrome Acute dehydration History of jkx-vvsnsux-edfosufdq diabetes This note was generated with [employer] dictation software. It may contain incorrect words, spelling, and punctuation that were not noted in review of the chart prior to signing ED Disposition - Plan for ED Patient: Chief Complaint: Fever Referrals: Cristian Banks Chi, MD [Primary Care Provider] - What to do if you have Problems For any increased pain, shortness of breath, bleeding, nausea or vomiting, chest pain, or any unexpected problems, contact your Primary Care Provider. Call [facility] ([phone]) or report to the closest Emergency Room. Call 911 if necessary. 05/20/18 1600 <Electronically signed by Shmuel West MD> Date Shmuel West MD Cosigner Signature (If Indicated): Date CC: Cristian Banks MD DISCHARGE INSTRUCTION Observed: 05/20/2018 Status: F Source: [place] 4:00 PM [facility] REPOSITORY [facility] Medical Records Department [address] [place] [address] Discharge Instruction 05/20/18 1350 MR#: [id number] Acct: [id number] Name: EVGENY HAMMER Rep #: [id number] : 1960 57 From: Shmuel West MD PCP: Cristian Banks MD, Chi Status: DEP ER ED Disposition - Plan for ED Patient: Disposition: Home or Assisted Living Chief Complaint: Fever Instructions: ED Viral Syndrome Referrals: Cristian Banks Chi, MD [Primary Care Provider] - 1-2 Days if not improving Additional Instructions: Plenty of fluids and rest. Alternate Tylenol and Motrin for fever. Follow-up with your doctor if not improving or return to ER feeling worse. All your labs and chest x-ray today were normal. No signs of any type of bacterial infection. Blood cultures are done but are pending results and should be reported in the next 24-48 hours. We will call you back if those are positive. What to do if you have Problems For any increased pain, shortness of breath, bleeding, nausea or vomiting, chest pain, or any unexpected problems, contact your Primary Care Provider. Call [facility] ([phone]) or report to the closest Emergency Room. Call 911 if necessary. 05/20/18 1600 <Electronically signed by Shmuel West MD> Date Shmuel West MD Cosigner Signature (If Indicated): Date CC: Cristian Banks MD URINALYSIS, COMPLETE Collected: 05/20/2018 Status: F Source: [place] 11:47 AM [facility] REPOSITORY Order Comment: Order Date: 05/20/18 How was Urine Obtained? CLEAN CATCH TYPE CODE TESTS RESULT OUT OF RANGE REFERENCE UNITS LAB L400.3000 Yellow COLOR Normal Yellow LAB L400.3050 Clear Normal CLARITY Clear LAB L400.3200 Normal mg/dl High GLUCOSE, UR 1000 LAB L400.3300 Negative mg/dL Normal BILIRUBIN URINE Negative LAB L400.3400 Negative mg/dl High KETONE UR 150 Result Comment: CRITICAL VALUE *H RESULTS CALLED TO GRETEL GARRIDO 05/20/18 1212 Tiffany Awan. REPORT READ BACK BY SAME. LAB L400.3465 1.002-1.030 Normal SP.GR. DIPSTX 1.015 LAB L400.3550 5.0 - 8.0 pH Normal UR 5.0 LAB L400.3600 Negative mg/dl High 15 PROT DIPSTX LAB L400.3700 Normal mg/dl Normal UROBILI Normal LAB L400.3750 Negative Normal NITRITE UR Negative LAB L400.3780 Negative /ul Normal OCCULT Negative BLOOD-UR LAB L400.3800 Negative /ul Normal LEUK ESTERASE Negative LAB L400.4050 0-5 /hpf 0 Normal WBC SEEN LAB L400.4100 0-5 /hpf 0 Normal RBC-UA SEEN LAB L400.4150 0-5 /hpf 0 Normal SQUAM EPI SEEN LAB L400.4300 None Seen /hpf 0 Normal BACTERIA SEEN LAB L400.4350 <or=2+ /hpf 0 Normal MUCUS, URINE SEEN Performed By: #### L400.0001 #### [facility] [address] [place], [address] Observed: 05/20/2018 Status: F Source: [place] CULTURE, BLOOD (WB) 8:13 AM [facility] REPOSITORY BC No growth in 5 days. Performed By: #### M200.1000 #### [facility] [address] [place], [address] CHEST 1 VIEW Observed: 05/20/2018 Status: F Source: [place] (PORTABLE) 7:51 AM [facility] REPOSITORY [facility] Imaging Services [address] [place] [address] Chest 1 View (Portable) MR#: [id number] Acct: [id number] Name: EVGENY HAMMER Rep #: [id number] : 1960 M 57 From: Marcelo Vasquez MD PCP: Darren CASTREJON,Cristian [facility] Status: REG ER Study: Chest 1 View (Portable) Date of Exam: 05/20/18 Exam# [id number] Ordering Dr: Shmuel West MD STUDY: X-RAY CHEST REASON FOR EXAM: Male, 57 years old. 3 day history of fever. TECHNIQUE: Single AP portable view of the chest. COMPARISON: Comparison is made with prior study dated June 28, 2013. FINDINGS: EKG electrodes are seen. The lungs are clear and expanded. There is no demonstrated pleural abnormality. Normal size heart. Normal mediastinum and deni. Normal visualized pulmonary arteries. Normal visualized aortic arch and descending thoracic aorta. Normal visualized thoracic spine. Normal visualized ribs, clavicles, and shoulders. There is no demonstrated abnormality of the visualized soft tissue structures of the upper abdomen. RAD/Chest 1 View (Portable) IMPRESSION: Normal x-ray examination of the chest. Electronically Signed: Marcelo Vasquez MD at 8:28 EDT Tel [phone], Service support , CC: Shmuel West MD; Cristian Banks MD Funeral Home Director: Signed BASIC METABOLIC Collected: 05/20/2018 Status: F Source: [place] PROFILE (BMP) 7:45 AM [facility] REPOSITORY TYPE CODE TESTS RESULT OUT OF RANGE REFERENCE UNITS LAB L501.0100 74-106 mg/dL High GLU 186 Result Comment: Fasting Glucose result greater than or equal to 126 mg/dL suggests DIABETES MELLITUS per A.D.A. criteria. Please note revised GLUCOSE reference range effective 2017. LAB L501.1000 7-18 mg/dL Normal BUN 16 LAB L501.1100 0.70-1.30 mg/dL Normal CREAT,SERUM 1.15 Result Comment: The validity of the calculated GFR AND GFRAA in patients over 70 years has not been determined. Clinical correlation is essential. LAB L501.1110 >60 mL/min Normal EST GFR 70 Result Comment: Non- GFR Calc LAB L501.1115 >60 mL/min Normal EST GFR - AA 84 Result Comment: GFR Calc LAB L501.1255 ml/min Normal Estimated CRCL 76.39 LAB L501.1300 10-20 RATIO Normal BUN/CRE 13.9 LAB L501.2200 8.5-10 mg/dL Normal .1 CA 9.2 LAB L501.5300 136-14 mmol/L Low 5 NA 133 LAB L501.5600 3.5-5. mmol/L Normal 1 K 4.7 LAB L501.5900 98-107 mmol/L Low CL 97 LAB L501.6100 21.0-3 mmol/L Normal 2.0 CO2 26.0 LAB L501.6200 5-15 Normal GAP 10 Performed By: #### L500.2500 #### [facility] [address] [place], [place], [address] CBC W/DIFF, AUTOMATED Collected: 05/20/2018 Status: F Source: [place] 7:45 AM [facility] REPOSITORY TYPE CODE TESTS RESULT OUT OF RANGE REFERENCE UNITS LAB L100.1000 4.4-11.0 K/mm3 Normal WBC 7.8 LAB L100.1200 4.6-6.2 M/mm3 Normal RBC 4.61 LAB L100.1300 13.0-16.5 g/dl Normal HGB 14.9 LAB L100.1400 40-54 % Normal HCT 43.5 LAB L100.1500 80-94 fL High MCV 94.4 LAB L100.1600 27.0-32.0 pg High MCH 32.3 LAB L100.1700 32-36 g/gl Normal MCHC 34.3 LAB L100.1810 11.6-14.6 % Normal RDW CV 12.6 LAB L100.1820 35.1-43.9 fl Normal RDW SD 43.1 LAB L100.1900 150-450 K/mm3 Normal PLT 204 LAB L100.2000 6.2-12.0 fl Normal MPV 10.2 LAB L100.2100 47-70 % High NEUT% 77.0 LAB L100.2200 19-41 % Low LY% 14.1 LAB L100.2300 0-10 % Normal MONO% 8.5 LAB L100.2400 0-5 % Normal EO% 0.0 LAB L100.2500 0-1 % Normal BASO% 0.3 LAB L100.2550 0.0-0.9 % Normal IM GRAN % 0.100 Result Comment: IG% - Immature Granulocytes (promyelocytes, myelocytes and metamyelocytes) > 1% indicates that a LEFT SHIFT is Present. LAB L100.2620 2.0-7.7 X10 3/uL Normal Absolute Neut 6.0 LAB L100.2720 0.83-4.51 X10 3/ul Normal Absolute Lymph 1.09 Performed By: #### L100.0100 #### [facility] [address] [facility] [place], [place], [id number] LACTIC ACID Collected: 05/20/2018 Status: F Source: [place] 7:45 AM [facility] REPOSITORY Order Comment: Yes/No query for Sepsis Lactate Rule Y TYPE CODE TESTS RESULT OUT OF RANGE REFERENCE UNITS LAB L503.6005 0.4-2.0 mmol/L Normal LACTIC ACID 1.5 Performed By: #### L503.6005 #### [facility] [address] [facility] [place], [place], [address] Observed: 05/20/2018 Status: F Source: [place] CULTURE, BLOOD (WB) 7:45 AM [facility] REPOSITORY BC No growth in 5 days. Performed By: #### M200.1000 #### [facility] [address] [place], [place], [address] URINE DRUG SCREEN Collected: 05/13/2018 Status: F Source: [place] (VISTA) 5:49 PM [facility] REPOSITORY Order Comment: List of Drugs Taken or Suspected? . TYPE CODE TESTS RESULT OUT OF RANGE REFERENCE UNITS LAB L505.0075 TO BE Normal CONFIRMED Result Comment: CONFIRMATORY TESTING FOR ALL POSITIVE URINE DRUG SCREEN RESULTS WILL ONLY BE SENT OUT UPON PHYSICIAN ORDER. VISTA Urine Drug Screen methods provide only preliminary analytical test results. A more specific alternate chemical method must be used in order to obtain a confirmed analytical result. Gas chromatography/mass spectrometery (GC/MS) is the preferred confirmatory method. Clinical consideration and professional judgement should be applied to any drug of abuse test result, particularly when preliminary positive results are used. URINE TCA TESTING MUST BE ORDERED SEPARATELY. USE TEST MNEMONIC: [facility] LAB L505.5005 VISTA UDS PH 6 Normal LAB L505.5015 <1000 ng/mL AMPHETAMINES Normal NEGATIVE LAB L505.5025 < 200 ng/mL BARBITIURATES Normal NEGATIVE LAB L505.5035 < 200 ng/mL BENZODIAZIPINE Normal NEGATIVE LAB L505.5045 < 300 ng/mL COCAINE Normal NEGATIVE LAB L505.5055 < 500 ng/mL ECSTACY Normal NEGATIVE LAB L505.5065 < 300 ng/mL METHADONE Normal NEGATIVE LAB L505.5075 < 300 ng/mL OPIATES Normal NEGATIVE LAB L505.5085 < 25 ng/mL PCP Normal NEGATIVE LAB L505.5095 < 50 ng/mL THC Normal NEGATIVE Performed By: #### L505.5000 #### [facility] [address] [place], [place], [address] MISCELLANEOUS LAB Collected: 05/13/2018 Status: F Source: [place] PROCEDURE 5:49 PM [facility] REPOSITORY Order Comment: Test(s) Ordered: 554400 TYPE CODE TESTS RESULT OUT OF RANGE REFERENCE UNITS LAB L801.1541 Normal [facility] LAB TEST Result Comment: 203600 6+OXYCODONE-BUND (ng/mL) DRUG RESULT SCREEN CUTOFF ____ Amphetamines,Urine Negative ng/mL 1000 Amphetamine test includes Amphetamine and Methamphetamine. Barbiturates Negative ng/mL 200 Benzodiazepines Negative ng/mL 200 Cannabinoid Negative ng/mL 20 Cocaine (Metab) Negative ng/mL 300 Opiates Negative ng/mL 300 Opiates test includes Codeine, Morphine, Hydromorphone, Hydrocodone. Oxycodone/Oxymorphone,Urine Negative ng/mL 300 Test includes Oxydodone and Oxymorphone. TESTING PERFORMED AT [facility]. ORIGINAL REPORT ON FILE IN LAB CONTAINS ADDITIONAL TEST SITE INFORMATION. Performed By: #### L801.1541 #### [facility] [address] [place] [address]. [place], [address] L/S SPINE W BEND Observed: 03/22/2018 Status: F Source: [facility] 6 VW 3:34 PM [facility] REPOSITORY [facility] Imaging Services [address] [place] [address] L/S Spine w Bend Min 6 Vw MR#: [id number] Acct: [id number] Name: EVGENY HAMMER Rep #: [id number] : 1960 M 57 From: Krzysztof Tirado PCP: Cristian Banks MD, Chi Status: REG CLI Study: L/S Spine w Bend Min 6 Vw Date of Exam: 03/22/18 Exam# [id number] Ordering Dr: Cristian Banks MD STUDY: X-RAY - LUMBOSACRAL SPINE REASON FOR EXAM: Male, 57 years old. Lower back pain after shoveling dirt on . TECHNIQUE: 7 view(s) of the lumbosacral spine were obtained. COMPARISON: May 20, 2016. FINDINGS: Normal lumbar lordosis. There is no substantial scoliosis. There is normal alignment of the vertebrae. No significant motion in flexion or extension. Normal vertebral bodies and endplates. Mild multilevel disc space narrowing unchanged. Small marginal osteophytes at several levels. Normal bilateral sacral ala, sacroiliac joints, and visualized sacrum. Normal visualized soft tissue structures. Total left hip arthroplasty in normal alignment. 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 Electronically Signed: Krzysztof Tirado MD at 4:27 EDT , Service support , CC: Cristian Banks MD Funeral Home Director: Signed COLON BIOPSY (CHOOSE Observed: 12/18/2017 Status: F Source: [facility]) 8:15 AM [facility] REPOSITORY Patient: EVGENY HAMMER : 1960 (57/M) Acct Num: [id number] Phys: Ghanshyam Alcantar Unit Num: [id number] Loc: LABSPEC Specimen: [id number] Received: 12/18/17 1533 Spec Type: COLON BX TISSUES TISSUES: A. COLON BIOPSY B. Transverse colon C. Ascending colon GROSS DESCRIPTION A - Received in fixative is one container labeled with the patient's name and designated polyp at 30 cm. The specimen consists of a shay- pink polyp measuring 0.8 x 0.8 x 0.5 cm. The apparent base is inked. The polyp is bisected and submitted entirely in one cassette. B - Received in fixative is one container labeled with the patient's name and designated transverse colon. The specimen consists of multiple irregular fragments of light shay soft tissue that in aggregate measure 1.2 x 0.5 x 0.3 cm. The specimen is totally submitted in one cassette. C - Received in fixative is one container labeled with the patient's name and designated mid ascending colon. The specimen consists of a shay-pink polyp measuring 1 x 0.5 x 0.2 cm. Also received in the container is an elongated fragment of brownish material measuring 1.5 cm in length and 0.1 cm in diameter. The specimen is totally submitted in one cassette. / SJ:clara 12/21/17 TC:1 CPT: 13193 x3 HEADER OPERATION: Colonoscopy PRE-OP DIAGNOSIS: Screening / polyp TISSUE SUBMITTED: A Polyp at 30 cm, rule out adenoma, B Transverse colon, rule out adenoma, C Mid ascending colon, rule out adenoma MICROSCOPIC DESCRIPTION Slides are reviewed. MICROSCOPIC DIAGNOSIS A. Polyp at 30 cm, biopsy: Tubular adenoma. B. Transverse colon polyp, biopsy: Fragments of tubular adenoma. C. Mid ascending colon polyp, biopsy: Tubular adenoma. Fragment of fecal material. SJ:clara 12/22/17 Signed Jamie Alvarez 12/22/17 <signature on file> Performed By: #### PCOLBX #### [facility] [address] [facility] [place], [address] LUNG Observed: 11/27/2017 Status: F Source: [place] SCREENING 3:11 PM [facility] REPOSITORY [facility] Imaging Services [address] [place] [address] Lung Screening MR#: [id number] Acct: [id number] Name: EVGENY HAMMER Rep #: [id number] : 1960 M 57 From: Varsha Stein MD PCP: Cristian Banks MD, Chi Status: REG CLI Study: Low Dose CT Lung Screening Date of Exam: 11/27/17 Exam# [id number] Ordering Dr: Cristian Banks MD STUDY: LOW DOSE CT LUNG CANCER SCREENING REASON FOR EXAM: Male, 57 years old. 18 year history of smoking RADIATION DOSAGE (If Supplied By Facility): CTDIvol = ( 4.02 ) mGy, DLP = ( 140.44 ) mGycm TECHNIQUE: No contrast was administered. Low dose technique was utilized (average mAS-38 and kVp 120). 1.25 mm axial source images with a slice interval of 1.25- mm were reconstructed in lung windows. 2.5 mm axial source images with a slice interval of 2.5-mm were reconstructed in lung windows. 5.0 mm axial source images with a slice interval of 5.0-mm were reconstructed in soft tissue windows. Nodule measured using lung windows on PACS and/or independent workstation with automated measurement of minimum and maximum diameter. Nodule measurement reported as average diameter rounded to the nearest whole number. Growth is defined as an increase ins size of greater than 1.5 mm. COMPARISON: None. NODULES: Pleural-parenchymal scarring at the posterior segment of the right lung upper lobe. There is no demonstrated pleural abnormality. Normal heart and pericardium. Normal mediastinum. Normal hilar regions. Normal unenhanced pulmonary arteries. Normal aorta arch and descending thoracic aorta. There are multi-level degenerative changes of the thoracic spine. There is no demonstrated abnormality of the visualized upper abdomen. CT/Low Dose CT Lung Screening IMPRESSION: Lung-RADS category 2. Recommendation: Routine screening CT scan in one year. IMPORTANT NOTES FOR USE: ACR Lung-RADS Version 1.0 Assessment Categories Release Date: January 16, 2014 Category: Coded 0-4 bases on nodule(s) with highest degree of suspicion. Negative screen is defined as categories 1 and 2; a positive screen is defined as categories 3 and 4. Category 3 and 4A nodules that are unchanged on interval CT should be coded as category 2, and individuals returned to screening in 12 months. Category 4X: Category 3 or 4 nodules with additional imaging findings that increase the suspicion of lung cancer, such as spiculation, GGN that doubles in size in 1 year, enlarged lymph notes, etc. Category Modifiers: S (significant finding unrelated to lung cancer) and C (prior history of treated lung cancer) may be added to the 0-4 Lung-RADS Electronically Signed: Varsha Stein MD at 22:11 EST Tel , Service support , CC: Cristian Banks MD Funeral Home Director: Signed CBC W/DIFF, AUTOMATED Collected: 11/10/2017 Status: F Source: [place] 2:18 PM [facility] REPOSITORY TYPE CODE TESTS RESULT OUT OF RANGE REFERENCE UNITS LAB L100.1000 4.4-11.0 K/mm3 Normal WBC 7.1 LAB L100.1200 4.6-6.2 M/mm3 Low RBC 4.55 LAB L100.1300 13.0-16.5 g/dl Normal HGB 14.4 LAB L100.1400 40-54 % Normal HCT 41.6 LAB L100.1500 80-94 fL Normal MCV 91.4 LAB L100.1600 27.0-32.0 pg Normal MCH 31.6 LAB L100.1700 32-36 g/gl Normal MCHC 34.6 LAB L100.1810 11.6-14.6 % Normal RDW CV 12.2 LAB L100.1820 35.1-43.9 fl Normal RDW SD 40.7 LAB L100.1900 150-450 K/mm3 Normal PLT 260 LAB L100.2000 6.2-12.0 fl Normal MPV 11.3 LAB L100.2100 47-70 % Normal NEUT% 55.4 LAB L100.2200 19-41 % Normal LY% 30.7 LAB L100.2300 0-10 % Normal MONO% 7.4 LAB L100.2400 0-5 % Normal EO% 5.0 LAB L100.2500 0-1 % High BASO% 1.4 LAB L100.2550 0.0-0.9 % Normal IM GRAN % 0.100 Result Comment: IG% - Immature Granulocytes (promyelocytes, myelocytes and metamyelocytes) > 1% indicates that a LEFT SHIFT is Present. LAB L100.2620 2.0-7.7 X10 3/uL Normal Absolute Neut 3.9 LAB L100.2720 0.83-4.51 X10 3/ul Normal Absolute Lymph 2.19 Performed By: #### L100.0100 #### [facility] [address] [place], [address] COMPREHENSIVE METABOLIC Collected: 11/10/2017 Status: F Source: [place] ISABEL 2:18 PM [facility] REPOSIT[facility] TYPE CODE TESTS RESULT OUT OF RANGE REFERENCE UNITS LAB L501.0100 74-106 mg/dL High GLU 282 Result Comment: Glucose result greater than or equal to 200 mg/dL suggests DIABETES MELLITUS per A.D.A. criteria. Please note revised GLUCOSE reference range effective 2017. LAB L501.1000 7-18 mg/dL Normal BUN 13 LAB L501.1100 0.70-1.30 mg/dL Normal CREAT,SERUM 0.93 Result Comment: The validity of the calculated GFR AND GFRAA in patients over 70 years has not been determined. Clinical correlation is essential. LAB L501.1110 >60 mL/min Normal EST GFR 89 Result Comment: Non- GFR Calc LAB L501.1115 >60 mL/min Normal EST GFR - AA 108 Result Comment: GFR Calc LAB L501.1300 10-20 RATIO Normal BUN/CRE 13.9 LAB L501.1500 6.4-8.2 g/dL T Normal PROT 7.7 LAB L501.1800 3.2-5.0 g/dL Normal ALB 4.0 LAB L501.1950 2.2-4.2 g/dL Normal GLOB 3.7 LAB L501.2000 0.9-2.4 RATIO Normal A/G 1.1 LAB L501.2200 8.5-10.1 mg/dL CA Normal 8.8 LAB L501.4100 15-37 U/L Low AST 12 LAB L501.4305 45-117 U/L Normal ALK P 84 LAB L501.4405 16-61 U/L Normal ALT 31 Result Comment: Please note revised ALT reference range effective 2017. LAB L501.4600 0.20-1.00 mg/dL Normal T BILI 0.30 LAB L501.5300 136-145 mmol/L Low NA 135 LAB L501.5600 3.5-5.1 mmol/L Normal K 4.3 LAB L501.5900 98-107 mmol/L Normal CL 99 LAB L501.6100 21.0-32.0 mmol/L Normal CO2 26.0 LAB L501.6200 5-15 Normal GAP 10 Performed By: #### L500.4050, L501.9520, L501.9910 #### [facility] [address] [place], [address] THYROID STIM HORMONE Collected: 11/10/2017 Status: F Source: [place] (TSH) 2:18 PM [facility] REPOSIT[facility] TYPE CODE TESTS RESULT OUT OF RANGE REFERENCE UNITS LAB L501.9520 0.358-3.74 uIU/mL Normal TSH 1.08 Performed By: #### L500.4050, L501.9520, L501.9910 #### [facility] [address] [place], [address] PSA,TOTAL - ANNUAL Collected: 11/10/2017 Status: F Source: [place] SCREEN 2:18 PM [facility] REPOSITORY TYPE CODE TESTS RESULT OUT OF RANGE REFERENCE UNITS LAB L501.9910 0.00-4.00 ng/mL Normal PSA,TOT 0.62 SCREEN Result Comment: This test was performed using the TPSA assay method for the LookTracker chemistry system. Values obtained with different assay methods cannot be used interchangably. When changing PSA assays in the course of monitoring a patient, additional sequential testing should be carried out to confirm baseline values. Performed By: #### L500.4050, L501.9520, L501.9910 #### [facility] [address] [place], [address] VITAMIN D,25 HYDROXY Collected: 11/10/2017 Status: F Source: [place] 2:18 PM [facility] REPOSIT[facility] TYPE CODE TESTS RESULT OUT OF REFERENCE UNITS RANGE LAB L506.1000 19.95-100.01 ng/mL Low Vitamin D 6.5 25-OH Result Comment: Vitamin D 25(OH) Status Range Deficiency <20 ng/mL (50nmol/L) Insuffciency 20 - 30 ng/mL (50 - 75 nmol/L) Sufficiency 30 - 100 ng/mL (75 - 250 nmol/L) Toxicity >100 ng/mL (>250 nmol/L) Performed By: #### L506.1000 #### [facility] [address] [place], [address] HEPATITIS C ANTIBODIES Collected: 11/10/2017 Status: F Source: [place] 2:18 PM [facility] REPOSIT[facility] TYPE CODE TESTS RESULT OUT OF RANGE REFERENCE UNITS LAB L3100.0650 0.0-0.9 s/co ratio Normal HEP C AB 0.2 Result Comment: Negative: < 0.8 Indeterminate: 0.8 - 0.9 Positive: > 0.9 The CDC recommends that a positive HCV antibody result be followed up with a HCV Nucleic Acid Amplification test (821097). Performed at: [facility] [id number] Nurse Practitioner Per Diem: Ghasnhyam Souza PhD, Phone: [phone] Performed By: #### L3100.0625 #### [facility] (refer to report for specific site) refer to report for address and phone number ALLERGIES ALLERGIES DATE TYPE / CODE NAME / CODE REACTION SEVERITY SOURCE 02/15/2017 Drug No Known Unknown [facility] Allergy/4160 Allergies/F00 Hospital 37136(SNOMED 7773921(RXNOR Repository CT) M) ENCOUNTERS ENCOUNTERS ADMIT/DISCHARGE ACCOUNT ADMITTING ENCOUNTER LOCATION SOURCE NUMBER CLASS 10/12/2018 [id number] Ambulatory [place] [facility] ing:HPRAD Repository 10/12/2018/ [id number] Ambulatory [facility] [place] [facility] Repository 08/26/2018 [id number] Ambulatory [place] [facility] ing:POLAB3 Repository 06/11/2018 [id number] Ambulatory [place] [facility] ing:MEDOUTP Repository 05/28/2018 [id number] Ambulatory [place] [facility] ing:POLAB3 Repository 05/20/2018/ [id number] Emergency [place] [facility] ing:ED Repository 05/13/2018 [id number] Ambulatory [place] [facility] ing:LAB Repository 04/10/2018 [id number] Ambulatory [place] [facility] ing:MRI Repository 03/22/2018 [id number] Ambulatory [place] [facility] ing:RAD Repository 12/18/2017 [id number] Ambulatory [place] [facility] ing:LABSPEC Repository 11/27/2017 [id number] Ambulatory [place] [facility] ing:CT Repository 11/10/2017 [id number] Ambulatory [place] [facility] ing:POLAB3 Repository PAYERS PAYERS ENCOUNTER GUARANTOR PAYER SUBSCRIBER SOURCE 10/12/2018 EVGENY S Primary EVGENY S [place] [id number] Insurance:ANTHEMPolic MILLERDOB: Community STELLA y Number: [id number] Repository [address]Uzg: (330) Date:6199-38-29YH [phone] () [id number], [place] [address]HK: 10/12/2018 Secondary NOT GIVENUNK [place] Insurance:SELF PAY [facility] Number: Effective Repository Date:2018-10-12 10/12/2018 EVGENY S Primary EVGENY S [place] [id number] Insurance:ANTHEMPolic MILLERDOB: Community STELLA y Number: [id number] [facility] [id number] Repository [address]Wuh: (330) Date:3354-97-37RZ [phone] () [address], [place] [address]CU: 10/12/2018 Secondary NOT GIVENUNK [place] Insurance:SELF PAY [facility] Number: Effective Repository Date:2018-07-12 08/26/2018 EVGENY S Primary EVGENY S [place] [id number] Insurance:ANTHEMPolic MILLERDOB: Community STELLA y Number: [id number] [facility] Long Term Acute [id number] Repository [address]Tax: (330) Date:7145-02-44SY [phone] () [address], [place] [address]AZ: 08/26/2018 Secondary NOT GIVENUNK [place] Insurance:SELF PAY [facility] Number: Effective Repository Date:2018-08-26 06/11/2018 EVGENY Waters Primary EVGENY Cobb [id number] Insurance:ANTHEMPolic MILLERDOB: Community STELLA y Number: [id number] [id number] Repository [address]Aet: (330) Date:6239-71-60LW [phone] () [address] [place] [address]HB: 06/11/2018 Secondary NOT GIVENUNK Pawling Insurance:SELF PAY [facility] Number: Effective Repository Date:2018-06-07 05/28/2018 Evgeny Waters Primary Evgeny Cobb [id number] Insurance:ANTHEMPolic MillerDOB: Community Stella y Number: [id number] Repository 52739Qjm: (330) Date:1392-81-25[phone] () [id number] [place] [address] 73581BW: 05/28/2018 Secondary NOT GIVENUNK Pawling Insurance:SELF PAY [facility] Number: Effective Repository Date:2018-05-28 05/20/2018 Evgeny Waters Primary Evgeny Cobb [id number] Insurance:ANTHEMPolic MillerDOB: Community Stella y Number: [id number] [id number] Repository 23912Axa: ([phone]) Date:9031-31-32WG [phone] () [id number] [place] [address] 00302MW: 05/20/2018 Secondary NOT GIVENUNK Jordyn Insurance:SELF PAY [facility] Number: Effective Repository Date:2018-05-20 05/13/2018 Evgeny S Primary Evgeny Cobb [id number] Insurance:ANTHEMPolic MillerDOB: Community Stella y [place]: [id number], [place] [id number] Repository 09396Wuh: (330) Date:9705-63-76[phone] () [id number] PETERSON 27936LX: 05/13/2018 Secondary NOT GIVENUNK Jordyn Insurance:SELF PAY [facility] Date:2018-05-13 04/10/2018 Evgeny S Primary Evgeny Cobb [id number] Insurance:ANTHEMPolic MillerDOB: Community Stella y Number: [id number] Castle [id number] Repository 58350Prp: ([phone]) Date:5094-81-27[address] () [id number] PETERSON 70350TD: 04/10/2018 Secondary NOT GIVENUNK Jordyn Insurance:SELF PAY [facility] Number: Effective Repository Date:2018-04-06 03/22/2018 Evgeny S Primary Evgeny Cobb [id number] Insurance:ANTHEMPolic MillerDOB: Community Stella y Number: [id number] Castle [id number] Repository 55383Bxx: ([phone]) Date:6812-73-97PY [address] () [id number] PETERSON 82070KM: 03/22/2018 Secondary NOT GIVENUNK Pawling Insurance:SELF PAY [facility] Number: Effective Repository Date:2018-03-22 12/18/2017 Evgeny S Primary Evgeny Cobb [id number] Insurance:ANTHEMPolic MillerDOB: Community Stella y Number: [id number] Castle [id number] Repository 32[address]Oiu: (330) Date:7492-47-67KT [phone] () [id number] PETERSON 79065UG: 12/18/2017 Secondary NOT GIVENUNK Jordyn Insurance:SELF PAY [facility] Number: Effective Repository Date:2017-12-18 11/27/2017 Evgeny S Primary Evgeny Cobb [id number] Insurance:ANTHEMPolic MillerDOB: Community Stella y Number: [id number], [place] [id number] Repository 937[address]Rog: (330) Date:5202-80-33XM [phone] () [id number], [place] [address]NJ: 11/27/2017 Secondary NOT GIVENUNK Jordyn Insurance:SELF PAY [facility]: Effective Repository Date:2017-11-18 11/10/2017 Evgeny S Primary Evgeny S Jordyn [id number] Insurance:ANTHEMPolic MillerDOB: Community Stella y Number: [id number], [place] [id number] Repository [address]Nry: (330) Date:9863-02-83YW [phone] () [id number], [place] [address]YE: 11/10/2017 Secondary NOT GIVENUNK Pawling Insurance:SELF PAY [facility]: Effective Repository Date:2017-11-10
== END ==
LOC: HPRAD 13:52
PROVIDERS: Family Provider Family Medicine Geriatric Medicine; PCP Family Medicine Geriatric Medicine; Referring Provider Orthopaedic Surgery; Visit Provider Orthopaedic Surgery
DX: M54.5 Low back pain (principal); M25.552 Pain in left hip; Z96.642 Presence of left artificial hip joint
CPT/HCPCS: 72114; 73502

== ENCOUNTER → 2018-11-25 16:08 | Outpatient (CLI) | payer BC, SELFPAY | PROVIDERS: Family Provider Family Medicine Geriatric Medicine; PCP Family Medicine Geriatric Medicine; Visit Provider Family Medicine Geriatric Medicine | DX: E11.9 Type 2 diabetes mellitus without complications (principal); E55.9 Vitamin D deficiency, unspecified; I10 Essential (primary) hypertension; Z12.5 Encounter for screening for malignant neoplasm of prostate ==

== ENCOUNTER → 2018-12-06 16:08 | Outpatient (CLI) | payer BC, SELFPAY ==
[2018-06-11 08:34] VITALS: BMI 23.7
[2018-12-06 17:17] LABS: Absolute Lymphocyte Count 2.41 X10^3/ul (0.83-4.51); Absolute Neutrophil Count 5.9 X10^3/uL (2.0-7.7); Basophil# 0.09 X10^3/uL; Basophil% 0.9 % (0-1); Eosinophil# 0.27 X10^3/uL; Eosinophils% 2.8 % (0-5); Hematocrit 41.8 % (40-54); Hemoglobin 14.1 g/dl (13.0-16.5); Lymphocyte # 2.41 X10^3/ul (4.0); Lymphocyte % 25.2 % (19-41); Mean Corp Hgb Conc 33.7 g/gl (32-36); Mean Corpuscular Hgb 32.1 pg (27.0-32.0); Mean Corpuscular Volume 95.2 fL (80-94); Mean Platelet Vol. 10.9 fl (6.2-12.0); Monocyte# 0.88 X10^3/uL; Monocyte% 9.2 % (0-10); Neutrophil # 5.88 X10^3/uL (2.7-7.7); Neutrophil % 61.7 % (47-70); Platelet Count 280 K/mm3 (150-450); RBC Distribution Width CV 12.6 % (11.6-14.6); RBC Distribution Width SD 42.7 fl (35.1-43.9); Red Blood Count 4.39 M/mm3 (4.6-6.2); White Blood Count 9.6 K/mm3 (4.4-11.0)
[2018-12-06 17:19] LABS: POSITIVE COUNT NO; POSITIVE DIFFERENTIAL NO; POSITIVE MORPHOLOGY NO
[2018-12-06 17:59] LABS: ALB/GLOB Ratio 1.3 RATIO (0.9-2.4); AST(SGOT) 14 U/L (15-37); Alanine Aminotransfer ALT/SGPT 31 U/L (16-61); Albumin, Serum 4.1 g/dL (3.2-5.0); Alkaline Phosphatase 69 U/L (45-117); Anion Gap 5 (5-15); BUN 18 mg/dL (7-18); BUN/Creat Ratio 16.7 RATIO (10-20); Calcium,Total 9.1 mg/dL (8.5-10.1); Chloride 106 mmol/L (98-107); Creatinine, Serum 1.08 mg/dL (0.70-1.30); EST Glomerular Filtration Rate 75 mL/min (>60); Est Glom Filt Rate - Afr Amer 91 mL/min (>60); Globulin 3.2 g/dL (2.2-4.2); Glucose 190 mg/dL (74-106); PSA,Total - Annual Screen 0.76 ng/mL (0.00-4.00); Potassium 4.6 mmol/L (3.5-5.1); Protein, Total 7.3 g/dL (6.4-8.2); Sodium Level 138 mmol/L (136-145); Thyroid Stim Hormone (TSH) 0.49 uIU/mL (0.358-3.74)
== END ==
LOC: POLAB3 16:09
PROVIDERS: Family Provider Family Medicine Geriatric Medicine; PCP Family Medicine Geriatric Medicine; Visit Provider Family Medicine Geriatric Medicine
DX: E11.9 Type 2 diabetes mellitus without complications (principal); E55.9 Vitamin D deficiency, unspecified; I10 Essential (primary) hypertension; Z12.5 Encounter for screening for malignant neoplasm of prostate
CPT/HCPCS: 36415; 80053; 82306; 84153; 84443; 85025; G0103

== ENCOUNTER → 2019-03-08 09:16 | Outpatient (CLI) | payer BC, SELFPAY ==
[2018-06-11 08:34] VITALS: BMI 23.7
[2019-03-08 15:50] LABS: Absolute Lymphocyte Count 2.71 X10^3/ul (0.83-4.51); Absolute Neutrophil Count 4.1 X10^3/uL (2.0-7.7); Basophil# 0.07 X10^3/uL; Basophil% 0.9 % (0-1); Eosinophil# 0.32 X10^3/uL; Hemoglobin 13.7 g/dl (13.0-16.5); Lymphocyte # 2.71 X10^3/ul (4.0); Lymphocyte % 34.3 % (19-41); Mean Corp Hgb Conc 35.1 g/gl (32-36); Mean Corpuscular Hgb 31.9 pg (27.0-32.0); Mean Corpuscular Volume 90.9 fL (80-94); Mean Platelet Vol. 10.4 fl (6.2-12.0); Monocyte# 0.68 X10^3/uL; Monocyte% 8.6 % (0-10); Neutrophil % 51.8 % (47-70); Platelet Count 277 K/mm3 (150-450); RBC Distribution Width CV 12.4 % (11.6-14.6); Red Blood Count 4.29 M/mm3 (4.6-6.2); White Blood Count 7.9 K/mm3 (4.4-11.0)
[2019-03-08 15:53] LABS: POSITIVE COUNT NO; POSITIVE DIFFERENTIAL NO; POSITIVE MORPHOLOGY NO
[2019-03-08 16:15] LABS: ALB/GLOB Ratio 1.1 RATIO (0.9-2.4); AST(SGOT) 18 U/L (15-37); Alanine Aminotransfer ALT/SGPT 41 U/L (16-61); Albumin, Serum 3.9 g/dL (3.2-5.0); Alkaline Phosphatase 68 U/L (45-117); Anion Gap 12 (5-15); BUN 20 mg/dL (7-18); Chloride 102 mmol/L (98-107); Creatinine, Serum 0.95 mg/dL (0.70-1.30); EST Glomerular Filtration Rate 86 mL/min (>60); Est Glom Filt Rate - Afr Amer 104 mL/min (>60); Globulin 3.5 g/dL (2.2-4.2); Glucose 176 mg/dL (74-106); Potassium 4.1 mmol/L (3.5-5.1); Protein, Total 7.4 g/dL (6.4-8.2); Sodium Level 139 mmol/L (136-145); Thyroid Stim Hormone (TSH) 1.62 uIU/mL (0.358-3.74)
== END ==
LOC: POLAB3 09:16
PROVIDERS: Visit Provider Family Medicine Geriatric Medicine
DX: E11.9 Type 2 diabetes mellitus without complications (principal); I10 Essential (primary) hypertension
CPT/HCPCS: 36415; 80053; 84443; 85025

== ENCOUNTER → 2019-06-06 13:50 | Outpatient (CLI) | payer BC, SELFPAY ==
[2019-06-06 17:12] LABS: Absolute Lymphocyte Count 2.36 X10^3/uL (0.83-4.51); Absolute Neutrophil Count 3.7 X10^3/uL (2.0-7.7); Basophil# 0.12 X10^3/uL; Basophil% 1.7 % (0-1); Eosinophil# 0.37 X10^3/uL; Eosinophils% 5.2 % (0-5); Hematocrit 39.9 % (40-54); Hemoglobin 13.2 g/dL (13.0-16.5); Lymphocyte # 2.36 X10^3/ul (4.0); Lymphocyte % 32.9 % (19-41); Mean Corp Hgb Conc 33.1 g/dL (32-36); Mean Corpuscular Hgb 31.3 pg (27.0-32.0); Mean Corpuscular Volume 94.5 fL (80-94); Mean Platelet Vol. 10.8 fl (6.2-12.0); Monocyte# 0.63 X10^3/uL; Monocyte% 8.8 % (0-10); NRBC Flagged by Analyzer 0 % (0-5); Neutrophil # 3.66 X10^3/uL (2.7-7.7); Platelet Count 241 K/mm3 (150-450); RBC Distribution Width CV 12.4 % (11.6-14.6); RBC Distribution Width SD 43.1 fl (35.1-43.9); Red Blood Count 4.22 M/mm3 (4.6-6.2); White Blood Count 7.2 K/mm3 (4.4-11.0)
[2019-06-06 17:35] LABS: ALB/GLOB Ratio 1.3 RATIO (0.9-2.4); AST(SGOT) 15 U/L (15-37); Alanine Aminotransfer ALT/SGPT 35 U/L (16-61); Albumin, Serum 4.2 g/dL (3.2-5.0); Alkaline Phosphatase 62 U/L (45-117); Anion Gap 9 (5-15); BUN 14 mg/dL (7-18); BUN/Creat Ratio 13.3 RATIO (10-20); Calcium,Total 8.9 mg/dL (8.5-10.1); Chloride 104 mmol/L (98-107); Creatinine, Serum 1.05 mg/dL (0.70-1.30); EST Glomerular Filtration Rate 77 mL/min (>60); Est Glom Filt Rate - Afr Amer 93 mL/min (>60); Globulin 3.2 g/dL (2.2-4.2); Glucose 132 mg/dL (74-106); Potassium 4.3 mmol/L (3.5-5.1); Protein, Total 7.4 g/dL (6.4-8.2); Sodium Level 139 mmol/L (136-145); Thyroid Stim Hormone (TSH) 2.41 uIU/mL (0.358-3.74)
== END ==
LOC: POLAB3 13:50
PROVIDERS: Family Provider Family Medicine Geriatric Medicine; PCP Family Medicine Geriatric Medicine; Visit Provider Family Medicine Geriatric Medicine
DX: E11.9 Type 2 diabetes mellitus without complications (principal); E55.9 Vitamin D deficiency, unspecified; I10 Essential (primary) hypertension
CPT/HCPCS: 36415; 80053; 82306; 84443; 85025

== ENCOUNTER → 2022-06-10 | Outpatient (CLI) | payer BC, SELFPAY ==
--- NOTE | 2022-06-10 08:30 | MRI_ITS ---
STUDY: MRI BRAIN WITH AND WITHOUT CONTRAST REASON FOR EXAM: Male, 62 years old. RIGHT optic disc edema TECHNIQUE: Standardized multiplanar fat and water weighted pulse sequences were obtained. 17ml Clariscan via IV was administered for the contrast portion of the examination. COMPARISON: None. FINDINGS: Normal size of the ventricles and extra-axial spaces for the patient''s age. There are a few tiny punctate white matter lesions bilaterally without mass effect or restricted diffusion likely due to small vessel ischemic changes in patient of this age.. Normal bilateral basal ganglia. Normal thalami. There is no extra-axial fluid accumulation. Normal flow voids within the major intracranial circulation suggesting patency by spin echo criteria. Normal venous enhancement. There is no enhancing intra-axial or extra-axial abnormality. Normal sella turcica, pituitary gland, infundibular stalk, optic chiasm and hypothalamus. Normal tectal plate and pineal gland. Normal midbrain, emeli and medulla. Normal cerebellum. Normal basal cisterns. Normal bilateral temporal bones. Normal bilateral internal auditory canals. No demonstrated orbital abnormality, within the constraints of a routine brain study.. Moderate diffuse pansinusitis.. Normal calvarium and skull base. Normal visualized soft tissue structures. Normal visualized upper cervical spine. MRI/Brain W/WO Contrast IMPRESSION: Minor periventricular white matter ischemic changes without evidence for acute infarct.. Otherwise normal enhanced and unenhanced MRI of the brain. No evidence for optic neuritis or enhancing lesion of the optic nerve Moderate diffuse pansinusitis Electronically Signed: Shmuel Boyer MD at 17:05 EDT ,
[2022-06-10 08:50] LABS: CREATININE FINGERSTICK < 0.9 mg/dL (0.70-1.30); EGFR FINGERSTICK > 60.0000 mL/min (>60)
== END | disposition home or self-care (01) ==
LOC: MRI 08:12
PROVIDERS: PCP Nurse Practitioner Family; Referring Provider Ophthalmology; Visit Provider Ophthalmology
DX: H47.10 Unspecified papilledema (principal); J32.4 Chronic pansinusitis
CPT/HCPCS: 70543; 70553; A9575

== ENCOUNTER 2024-03-09 06:30 | Emergency (ER) | payer MEDICAID, SELFPAY ==
[2024-03-09 06:33] VITALS: BP 175/97; PULSE 114; RESP 18; TEMP 36.3; O2SAT 100
[2024-03-09 06:38] VITALS: BMI 26.2
--- NOTE | 2024-03-09 06:39 | RAD_ITS ---
STUDY: X-RAY - LUMBAR SPINE REASON FOR EXAM: Male, 63 years old. pain TECHNIQUE: 3 view(s) of the lumbar spine were obtained. COMPARISON: None FINDINGS: Normal lumbar lordosis. There is no substantial scoliosis. There is a normal alignment of the vertebrae. Moderate disc space narrowing at L3-L4 and L4-L5 with anterior endplate spurring. The remaining disc spaces are preserved. Multilevel anterior and paravertebral endplate osteophyte formation. Moderate facet joint hypertrophy at L4-L5 and L5-S1. No fracture or compression deformity is present. There is atherosclerotic calcification of the abdominal aorta without a demonstrated aneurysm. RAD/Lumbar Spine 2 or 3 Views IMPRESSION: Degenerative changes of the spine, as detailed above. Electronically Signed: Michelet Mesa MD at 9:43 EDT ,
--- NOTE | 2024-03-09 06:39 | RAD_ITS ---
STUDY: X-RAY - PELVIS AND RIGHT HIP REASON FOR EXAM: Male, 63 years old. INJURED BACK ON , NOW HAVING SEVERE PAIN IN RT HIP/LEG TECHNIQUE: 3 views of the pelvis and hip. COMPARISON: None. FINDINGS: There is a non-specific bowel gas pattern. Normal visualized soft tissue structures. Normal bilateral iliac wings, sacroiliac joints and visualized sacrum. Normal bilateral superior and inferior pubic rami. Normal pubic symphysis. Normal bilateral ischial tuberosities. The right hip joint space is preserved. Minimal osteophyte formation at the right femoral head neck junction. No fractures are present. Unremarkable left hip prosthesis. RAD/HIP, UNI W/ Pelvis 2-3 Views IMPRESSION: 1. No acute process Electronically Signed: Michelet Mesa MD at 9:48 EDT ,
--- NOTE | 2024-03-09 06:40 | EDS_ITS ---
HPI History of Present Illness Chief Complaint: Lower Extremity Injury Informant: patient Narrative Narrative: Worsening pain into his right hip overnight. 3 days ago injured his right lower back while working. He was pulling on a wrench when he felt his pain in his back he states he was quivering at that time. Since then has settled down. Pain yesterday went into his hip. He states that pain that runs behind his knee. No loss of bowel or bladder control. He states his hip pain felt similar to when he needed left total hip repair. He has no allergies. No fevers. No urinary symptoms. No medications taken. Prior similar symptoms: No PFSH PFSH Medical History Hypertension Home Medications ?Medication ?Instructions ?Recorded ?Last Taken ?Type acetaminophen 325 mg tablet PO 03/09/24 Unknown History cyclobenzaprine 10 mg tablet PO 03/09/24 Unknown History diazepam 5 mg tablet 5 mg PO Q8 PRN Muscle Spasm #12 03/09/24 Unknown Rx tabs ibuprofen 600 mg tablet 600 mg PO Q6H PRN PRN pain 03/09/24 Unknown History oxycodone-acetaminophen 5 mg-325 1 tab PO Q6H PRN PRN Pain 3 days 03/09/24 Unknown Rx mg tablet #12 TABLETS prednisone 20 mg tablet 60 mg (3 x 20 mg) PO DAILY #12 03/09/24 Unknown Rx TABLETS Allergy/AdvReac Type Severity Reaction Status Date / Time No Known Allergies Allergy Verified 03/09/24 06:32 Surgical History History of hip replacement Social History Smoking Status: Current every day smoker ROS ROS ED Constitutional Constitutional ED: Denies chills, fever(s) or sweats Eyes Eyes: Denies change in vision ENT ENT ED: Denies dysphagia or sore throat Cardiovascular Cardiovascular: Denies chest pain, leg edema, palpitations or racing heartbeat Respiratory/Chest Respiratory/Chest: Denies cough, dyspnea or dyspnea on exertion Gastrointestinal Gastrointestinal: Denies abdominal pain, diarrhea, nausea or vomiting Genitourinary Genitourinary ED: Denies dysuria, hematuria or urinary frequency Musculoskeletal Musculoskeletal: Reports back pain and extremity pain; Denies neck pain Integumentary Denies rash or wounds Neurologic Neurologic: Denies headache(s), paresthesias or weakness EXAM Physical Exam Const Vital Signs: 03/09/24 06:33 Temperature 97.4 F L Temperature Source Temporal Pulse Rate 114 H Respiratory Rate 18 Blood Pressure 175/97 H Blood Pressure Mean 123 Pulse Ox 100 Oxygen Delivery Method Room Air Positive well nourished and well developed Constitutional Narrative: Uncomfortable, nontoxic General Appearance ED: well developed HEENT Reports moist mucous membranes normocephalic and atraumatic Eyes EOMs intact bilaterally and conjunctivae normal General Eye ED: Yes normal appearance of both eyes Neck no lymphadenopathy and supple General: Negative for tenderness Chest Wall Chest: Negative for tenderness Resp normal respiratory effort and normal air movement Effort and Inspection: symmetric chest movement; Negative for respiratory distress Cardio regular rhythm and no murmurs Rate: tachycardic Peripheral Pulses: pulses 2+ throughout GI normal to inspection, nondistended, normoactive bowel sounds and non-tender Palpation: Negative for guarding or rebound tenderness present Back/Spine no CVA tenderness Back/Spine Narrative: Tender palpation right paralumbar, straight leg test negative. 1+ patellar reflex bilaterally. Extremity normal to inspection Extremity Narrative: Negative logroll of the lower extremities. General Extremety ED: Negative for edema or tenderness General Extremity: Negative for edema Neuro oriented x3 and no sensory deficits noted Sensorium / Orientation: awake and alert Skin no rashes or lesions noted and no wounds MDM MDM MDM Narrative Medical decision making narrative: Interventions / MDM: Differential diagnosis: Sciatica, lumbar strain, lumbar radiculopathy Diagnosis considered but do not suspect: No cauda equina symptoms My EKG interpretation: N/A Imaging independently reviewed and interpreted by myself: Lumbar spine x-ray 3 views: Degenerative changes lower lumbar spine L3-L4 L4-L5, right hip and pelvis x-ray 3 views: Mild degenerative changes of the right hip. No fracture no dislocation. Left total hip prosthesis. External documents reviewed: N/A Test considered but not ordered:N/A ED course: Patient uncomfortable tachycardic due to pain. History exam concerns for sciatica symptoms with lumbar radiculopathy. Reports pain in his hip stating similar to when he needed his left hip repair. Treated symptomatically with morphine Toradol and Valium. Will obtain x-rays of his lumbar spine and his right hip for further evaluation. 0740: Continues to have intermittent spasms. He has no cauda equina symptoms. I discussed lumbar radiculopathy with sciatica symptoms with the patient. He is not a diabetic. Will add prednisone. Will treat with oxycodone in the ED. He reports he seen Dr. Huntley in the past for his left hip. He was at the PCP yesterday states for his back pain was put on Flexeril and ibuprofen and acetaminophen. Discussed holding his Flexeril at this time. He is written for diazepam to use. Short course of oxycodone's. He will continue his ibuprofen. He has a walker at home to use if needed for stability. Discussed calling his PCP for plans of physical therapy also. At this time do not feel emergent MRI is necessary as he has no cauda equina symptoms. All questions were answered. Re-evaluation: stable Disposition discussed with patient/family/significant other: Patient Case discussed with consulting clinician: N/A This note was generated with [employer] dictation software. It may contain incorrect words, spelling, and punctuation that were not noted in checking the note before signing. Discharge Plan Triage Chief Complaint: Lower Extremity Injury ED Provider: Pete Davis Dx/Rx/DC Orders Clinical Impression: Sciatica of right side, Hip pain, right, Degenerative disk disease Instructions: ED Degenerative Disk Disease, ED Knee Pain of Uncertain Cause, ED Sciatica Prescriptions: New prednisone 20 mg tablet 60 mg PO DAILY Qty: 12 0RF oxycodone-acetaminophen 5-325 mg tablet 1 tab PO Q6H PRN PRN (Reason: Pain) 3 Days Qty: 12 0RF diazepam 5 mg tablet 5 mg PO Q8 PRN (Reason: Muscle Spasm) Qty: 12 0RF No Action cyclobenzaprine 10 mg tablet PO acetaminophen 325 mg tablet PO ibuprofen 600 mg tablet 600 mg PO Q6H PRN PRN (Reason: pain) Primary Care Provider: Jerzy Florentino Referrals: Jeanine Huntley MD [Med Staff - Active Staff] - 3-5 Days Care Physician,No Primary [Non-Staff] - Activity Restrictions/Additional Instructions: Lumbar spine x-ray degenerative changes L3-L4, L4-L5. Right hip x-ray mild degenerative changes of the hip. History concerns for sciatica symptoms. Continue your ibuprofen. Stop your cyclobenzaprine. Use diazepam for muscle spasms. Oxycodone as needed. Follow-up with your primary doctor for therapy. You have seen Dr. Huntley in the past, call for outpatient evaluation. Print Language: Divehi Disposition Disposition: Home, Self Care
[2024-03-09] MEDS: Morphine 4 MG/ML Syringe IM (06:47)
[2024-03-09] MEDS: diazePAM 5 MG Tablet PO (06:47)
[2024-03-09] MEDS: Ketorolac 30 MG/ML Syringe IM (06:52)
[2024-03-09] MEDS: oxyCODONE 5 MG Tablet PO (07:43)
[2024-03-09] MEDS: predniSONE 20 MG Tablet 60 MG PO (07:44)
[2024-03-09 07:46] VITALS: BP 157/94; PULSE 85; RESP 22; TEMP 36.5; O2SAT 97
== END 2024-03-09 08:11 | disposition home or self-care (01) ==
PROVIDERS: Emergency Provider Emergency Medicine; PCP Family Medicine; Visit Provider Emergency Medicine
DX: M54.31 Sciatica, right side (principal); M25.551 Pain in right hip; F17.200 Nicotine dependence, unspecified, uncomplicated; Z96.642 Presence of left artificial hip joint
CPT/HCPCS: 72100; 73502; 96372; 99283

== ENCOUNTER 2024-03-13 12:36 | Emergency (ER) | payer MEDICAID, SELFPAY ==
[2024-03-13 12:37] VITALS: BP 156/109; PULSE 109; RESP 17; TEMP 36.2; O2SAT 98; BMI 25.1
[2024-03-13 14:37] VITALS: BP 180/90; PULSE 90; RESP 16; O2SAT 20
--- NOTE | 2024-03-13 14:39 | EDS_ITS ---
HPI History of Present Illness Chief Complaint: Back Narrative Narrative: This is a 63-year-old male who presents to the emergency department for low back pain radiating down the right lower extremity. The patient states he has had ongoing pain for about 10 days now. He states the initial injury was pulling his back while working with a wrench. He was seen on March 09 and treated symptomatically in the ED and sent home with Valium and pain medication. He states he has been taking this without relief. He states he has 10 out of 10 pain, sharp, radiating down the back of his right leg. Pain is exacerbated by ambulation and any weightbearing and trying to straighten the right leg. The patient knows he has some known degenerative changes and chronic issues with the lower lumbar spine. He has no saddle anesthesia. No urinary or bowel dysfunction. No numbness, tingling, weakness or paresthesias anywhere. No fevers or chills. No prior back surgery/instrumentation. [facility] Medical History Hypertension Home Medications ?Medication ?Instructions ?Recorded ?Last Taken ?Type acetaminophen 325 mg tablet PO 03/09/24 Unknown History cyclobenzaprine 10 mg tablet PO 03/09/24 Unknown History diazepam 5 mg tablet 5 mg PO Q8 PRN Muscle Spasm #12 03/09/24 Unknown Rx tabs ibuprofen 600 mg tablet 600 mg PO Q6H PRN PRN pain 03/09/24 Unknown History oxycodone-acetaminophen 5 mg-325 1 tab PO Q6H PRN PRN Pain 3 days 03/09/24 Unknown Rx mg tablet #12 TABLETS prednisone 20 mg tablet 60 mg (3 x 20 mg) PO DAILY #12 03/09/24 Unknown Rx TABLETS Allergy/AdvReac Type Severity Reaction Status Date / Time No Known Allergies Allergy Verified 03/13/24 12:39 Surgical History History of hip replacement Social History Smoking Status: Current every day smoker tobacco type: cigarettes ROS ROS ED Constitutional Constitutional ED: Reports systems reviewed and no addt'l complaints, except as documented and as per HPI; Denies chills or fever(s) Cardiovascular Cardiovascular: Denies abdominal pain or chest pain Respiratory/Chest Respiratory/Chest: Denies dyspnea Gastrointestinal Gastrointestinal: Denies abdominal pain, constipation, diarrhea, nausea or vomiting Musculoskeletal Musculoskeletal: Reports back pain; Denies neck pain Integumentary Denies rash Neurologic Neurologic: Denies dizziness or headache(s) EXAM Physical Exam Narrative Exam Narrative: Patient appears uncomfortable, holding her right lower extremity flexed, writhing in pain Const Vital Signs: 03/13/24 12:37 03/13/24 14:37 03/13/24 16:00 Temperature 97.2 F L Temperature Source Temporal Pulse Rate 109 H 90 87 Respiratory Rate 17 16 18 Blood Pressure 156/109 H 180/90 H 175/89 H Blood Pressure Mean 124 120 117 Pulse Ox 98 20 97 Oxygen Delivery Method Room Air Room Air Room Air 03/13/24 18:00 Temperature Temperature Source Pulse Rate 87 Respiratory Rate 24 H Blood Pressure 183/97 H Blood Pressure Mean 125 Pulse Ox 98 Oxygen Delivery Method Room Air Positive well nourished and alert HEENT Reports normocephalic, head/scalp atraumatic and moist oral mucous membranes Eyes PERRL, EOMs intact bilaterally and conjunctivae normal General Eye ED: Yes normal appearance of both eyes Neck full ROM and supple Chest Wall inspection of chest normal Resp normal respiratory effort and normal air movement Effort and Inspection: able to speak in complete sentences Cardio regular rate and regular rhythm Back/Spine Negative for straight leg raise negative bilaterally Back/Spine Narrative: TTP over the right lumbosacral paraspinal region. Positive straight leg test on the right. Extremity normal to inspection Neuro oriented x3, moves all extremities and no focal motor deficits Motor Exam: strength 5/5 throughout and muscle tone normal throughout Psych mental status grossly normal Skin no rashes or lesions noted MDM MDM MDM Narrative Medical decision making narrative: This is a 63-year-old male who presents to the emergency department for back pain. He has not had any new injuries to the back that would require CT or x- ray imaging. No red flag signs or symptoms of cauda equina, discitis, transver se myelitis, epidural or epidural abscess to require urgent MRI imaging. Additionally no focal neurologic deficits. Patient treated symptomatically in the emergency department with Dilaudid, Toradol, and Norflex. Lab Data Labs: Laboratory Results - last 24 hr 03/13/24 03/13/24 17:30 18:22 WBC 9.8 RBC 4.51 L Hgb 13.8 Hct 41.5 MCV 92.0 MCH 30.6 MCHC 33.3 RDW Std Deviation 41.4 RDW Coeff of Mychal 12.2 Plt Count 289 MPV 10.0 Immature Gran % (Auto) 0.500 Neut % (Auto) 59.2 Lymph % (Auto) 30.1 [place] % (Auto) 8.2 Eos % (Auto) 1.2 Baso % (Auto) 0.8 Absolute Neuts (auto) 5.8 Absolute Lymphs (auto) 2.94 Nucleated RBC % 0 Sodium 141 Potassium 4.2 Chloride 106 Carbon Dioxide 29.0 Anion Gap 6 BUN 27 H Creatinine 0.92 Estim Creat Clear Calc 88.67 Est GFR (MDRD) Af Amer 107 Est GFR (MDRD) Non-Af 89 BUN/Creatinine Ratio 29.4 H Glucose 176 H Lactic Acid 1.2 Calcium 8.7 Total Creatine Kinase 325 H C-React Prot Ext Range < 2.90 Urine Opiates Screen POSITIVE H Urine Methadone Screen NEGATIVE Ur Barbiturates Screen NEGATIVE Ur Phencyclidine Scrn NEGATIVE Ur Amphetamines Screen POSITIVE H MDMA (Ecstasy) Screen POSITIVE H U Benzodiazepines Scrn POSITIVE H Urine Cocaine Screen NEGATIVE U Cannabinoids Screen POSITIVE H Ur Drug Screen Comment Treatment and Re-Evaluation Narrative: On initial reevaluation patient did not get any relief from the Dilaudid, Toradol and Norflex. He was then given additional Dilaudid and Valium in the emergency department. I went back and reevaluated the patient at 1705. He continues to writhing pain stating the pain is getting worse behind his right thigh. He describes a bandlike pain. I again repeated my physical examination and the leg is all soft and compressible. There are no signs of compartment syndrome. The patient has no signs of trauma or ecchymosis. Pain distribution not consistent with DVT as it is over his lateral right IT band. Patient has strong distal pulses and good perfusion to the foot so I do not think that there is any arterial embolism. I will order ketamine for pain relief for the patient and order lab work to rule out any infectious process such as necrotizing fasciitis. However, given the distribution of pain and continue to suspect more neuropathic pain likely from sciatica. Lab work reviewed and the patient has a grossly normal CBC and BMP. The patient's lactic acid is not elevated. Creatinine kinase level slightly elevated at 325 but the patient was hydrated with IV fluids. CRP is not elevated. No evidence to suggest any infectious process at this time. Urine drug screen positive for opiates, amphetamines, MDMA, and benzodiazepines. He is positive for cannabinoids as well. Patient does admit to smoking marijuana but states he does not use any other drugs. I did offer the patient admission for pain control and further monitoring. However, patient declined stating he would just like to be discharged home today. Patient needs to follow-up with his PCP may benefit from an Ortho or spinal referral if he has ongoing pain, which appears to be more musculoskeletal and sciatic in nature. Patient understands discharge and follow-up instructions. He was also given return precautions. Discharge Plan Triage Chief Complaint: Back ED Provider: Natasha Savage Dx/Rx/DC Orders Clinical Impression: Degenerative disk disease, Sciatica of right side, Acute pain of right thigh Instructions: ED Sciatica Prescriptions: No Action cyclobenzaprine 10 mg tablet PO acetaminophen 325 mg tablet PO ibuprofen 600 mg tablet 600 mg PO Q6H PRN PRN (Reason: pain) prednisone 20 mg tablet 60 mg PO DAILY Qty: 12 0RF oxycodone-acetaminophen 5-325 mg tablet 1 tab PO Q6H PRN PRN (Reason: Pain) 3 Days Qty: 12 0RF diazepam 5 mg tablet 5 mg PO Q8 PRN (Reason: Muscle Spasm) Qty: 12 0RF Primary Care Provider: Jerzy Florentino Referrals: Jerzy Florentino MD [Primary Care Provider] - Print Language: Croatian Disposition Disposition: Home, Self Care
[2024-03-13] MEDS: Orphenadrine 60 MG/2 ML Ampul IM (14:56)
[2024-03-13] MEDS: HYDROmorphone 1 MG/ML Syringe 0.5 MG IV (14:57)
[2024-03-13] MEDS: Ketorolac 30 MG/ML Syringe IV (14:58)
--- NOTE | 2024-03-13 15:03 | ED.RN ---
PT REFUSED DIPLOMA MEDICAL ASSISTANT . DR BAUTISTA AWARE
[2024-03-13 16:00] VITALS: BP 175/89; PULSE 87; RESP 18; O2SAT 97
[2024-03-13] MEDS: diazePAM 2 MG Tablet PO (16:35)
[2024-03-13] MEDS: HYDROmorphone 1 MG/ML Syringe IV (16:36)
[2024-03-13] MEDS: 0.9% Normal Saline (1000mL) 1,000 ML 999 ML IV (16:38)
[2024-03-13] MEDS: Ketamine HCl 500 MG/5 ML Vial 20 MG IV (17:23)
[2024-03-13 17:40] LABS: Absolute Lymphocyte Count 2.94 X10^3/uL (0.83-4.51); Absolute Neutrophil Count 5.8 X10^3/uL (2.0-7.7); Basophil# 0.08 X10^3/uL; Basophil% 0.8 % (0-1); Eosinophil# 0.12 X10^3/uL; Eosinophils% 1.2 % (0-5); Hematocrit 41.5 % (40-54); Hemoglobin 13.8 g/dL (13.0-16.5); Lymphocyte # 2.94 X10^3/ul (0.83-4.51); Lymphocyte % 30.1 % (19-41); Mean Corp Hgb Conc 33.3 g/dL (32-36); Mean Corpuscular Hgb 30.6 pg (27.0-32.0); Monocyte% 8.2 % (0-10); NRBC Flagged by Analyzer 0 % (0-5); Neutrophil # 5.78 X10^3/uL (2.7-7.7); Neutrophil % 59.2 % (47-70); Platelet Count 289 K/mm3 (150-450); RBC Distribution Width CV 12.2 % (11.6-14.6); RBC Distribution Width SD 41.4 fl (35.1-43.9); Red Blood Count 4.51 M/mm3 (4.6-6.2); White Blood Count 9.8 K/mm3 (4.4-11.0)
[2024-03-13 17:57] LABS: Anion Gap 6 (5-15); BUN 27 mg/dL (7-18); BUN/Creat Ratio 29.4 RATIO (10-20); CPK Total, Creatine Kinase 325 U/L (39-308); CRP < 2.90 mg/L (0.0-3.0); Calcium,Total 8.7 mg/dL (8.5-10.1); Chloride 106 mmol/L (98-107); Creatinine, Serum 0.92 mg/dL (0.70-1.30); EST Glomerular Filtration Rate 89 mL/min (>60); Est Glom Filt Rate - Afr Amer 107 mL/min (>60); Estimated Creatinine Clearance 88.67 ml/min; Glucose 176 mg/dL (74-106); Potassium 4.2 mmol/L (3.5-5.1); Sodium Level 141 mmol/L (136-145)
[2024-03-13 18:00] VITALS: BP 183/97; PULSE 87; RESP 24; O2SAT 98
[2024-03-13 18:06] LABS: Lactic Acid 1.2 mmol/L (0.4-1.9)
--- NOTE | 2024-03-13 18:16 | EKG12_ITS ---
Test Reason : DYSRHYTHMIA Blood Pressure : / mmHG Vent. Rate : 090 BPM Atrial Rate : 090 BPM P-R Int : 104 ms QRS Dur : 076 ms QT Int : 360 ms P-R-T Axes : 049 057 061 degrees QTc Int : 440 ms Sinus rhythm with short WA with occasional Premature ventricular complexes Septal infarct , age undetermined Abnormal ECG Confirmed by Derrick Ross ([id number]), editor map MARTHA CORCORAN ([id number]) on 03/15/2024 8:01:43 AM Referred By: Confirmed By:Derrick Ross
--- NOTE | 2024-03-13 18:16 | ED.RN ---
lab called critical of lactic 2.[address] Savage aware
[2024-03-13 18:49] LABS: Amphetamine Urine VISTA POSITIVE (<1000 ng/mL); Barbiturate Urine VISTA NEGATIVE (< 200 ng/mL); Benzodiazepine Urine VISTA POSITIVE (< 200 ng/mL); Cocaine Urine VISTA NEGATIVE (< 300 ng/mL); Ecstacy Urine VISTA POSITIVE (< 500 ng/mL); Methadone Urine VISTA NEGATIVE (< 300 ng/mL); PCP Urine VISTA NEGATIVE (< 25 ng/mL); THC Urine VISTA POSITIVE (< 50 ng/mL); Vista UDS pH Range 5
[2024-03-13 19:45] VITALS: BP 171/93; PULSE 82; RESP 82; TEMP 36.7; O2SAT 98
[2024-03-13 20:28] VITALS: BP 171/101; PULSE 75; RESP 16; TEMP 36.7; O2SAT 94
== END 2024-03-13 20:31 | disposition home or self-care (01) ==
PROVIDERS: Emergency Provider Emergency Medicine; PCP Family Medicine; Visit Provider Emergency Medicine
DX: M54.50 Low back pain, unspecified (principal); M54.31 Sciatica, right side; F17.210 Nicotine dependence, cigarettes, uncomplicated; I10 Essential (primary) hypertension; M51.36 Other intervertebral disc degeneration, lumbar region
CPT/HCPCS: 80048; 80307; 82550; 83605; 85025; 86140; 93005; 96361; 96372; 96374; 96375; 96376; 99284; J7030; A4216

== ENCOUNTER 2025-01-24 11:15 | Emergency (ER) | payer SELFPAY ==
[2025-01-24 11:16] VITALS: BP 149/96; PULSE 102; RESP 18; TEMP 36.1; O2SAT 100
[2025-01-24 11:17] VITALS: BMI 25.8
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
[2025-01-24] MEDS: oxyCODONE 5 MG Tablet PO (12:16)
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
[2025-01-24 13:38] VITALS: BP 160/95; PULSE 89; RESP 16; TEMP 36.5; O2SAT 98
== END 2025-01-24 13:53 | disposition home or self-care (01) ==
PROVIDERS: Emergency Provider Emergency Medicine; PCP Family Medicine; Visit Provider Emergency Medicine
DX: S70.01XA Contusion of right hip, initial encounter (principal); S10.93XA Contusion of unspecified part of neck, initial encounter; V69.9XXA Occupant (driver) (passenger) of heavy transport vehicle injured in unspecified traffic accident, initial encounter; F17.210 Nicotine dependence, cigarettes, uncomplicated
CPT/HCPCS: 70450; 72125; 73502; 99282; A4216